=== PATIENT | male | born 1975 | race Caucasian/White ===

== ENCOUNTER 2022-12-28 14:03 | Inpatient (IN) | payer BC, SELFPAY ==
[2022-12-28] VITALS (50 sets, daily range): BP systolic 97–140; BP diastolic 66–109; PULSE 86–101; RESP 14–18; TEMP 36.3–36.8; O2SAT 90–100; BMI 40.1
--- NOTE | 2022-12-28 14:09 | XRR_ITS ---
PROCEDURE INFORMATION: Exam: XR Chest Exam date and time: 12/28/2022 2:22 PM Age: 47 years old Clinical indication: Other: AMS TECHNIQUE: Imaging protocol: Radiologic exam of the chest. Views: 1 view. COMPARISON: No relevant prior studies available. FINDINGS: Lungs: 10 mm calcified granuloma in the right mid lung. There is no consolidation. Pleural spaces: There is no pleural effusion or pneumothorax. Heart/Mediastinum: Cardiomediastinal contours are unremarkable. Bones/joints: Bones are unremarkable. XR/XR chest 1V portable [id number] IMPRESSION: No acute findings.
--- NOTE | 2022-12-28 14:14 | PC.NURSE ---
PATIENT PRESENTED TO ED RESTRAINED DUE TO AGGRESSION AND SPITTING, BITING STAFF. EMS REPORTS THAT RESTRAINTS WERE NEEDED TO CONTROL PATIENT BEHAVIOR. SOFT RESTRAINTS PUT IN PLACE AT TIME OF ASSESSMENT. PATIENT CONTINUES TO TRY AND COME OUT OF RESTRAINTS. PATIENT ON NRB AT 15 L DUE TO KETAMINE AND ATIVAN USE BY EMS. WILL CONTINUE TO MONITOR PATIENT NEED FOR RESTRAINTS. 1:1 SITTER PRESENT AND INSTRUCTED ON PATIENT. PATENT AIRWAY, UNLABORED RESPIRATIONS, AND APPROPRIATE COLOR.
--- NOTE | 2022-12-28 14:16 | W.ED.AMS ---
HPI - Altered Mental Status General: Chief Complaint: Altered Mental Status Stated Complaint: AMS Time Seen by Provider: 12/28/22 14:09 History of Present Illness: Patient presents to ED by EMS for altered mental status after drug use. Patient was found at his home not acting himself and acting crazy. Patient just got out of snf 4 days ago and has been on a IV meth coello since then. Patient has received multiple doses of ketamine and Ativan on route by EMS. Patient is a biter spitter and pincher. Patient is in restraints for his own personal safety and nursing staff safety MD complaint: altered mental status Onset (ago): unknown Severity: severe Consistency of symptoms: Constant Context: drug abuse Treatments prior to arrival: other (Ketamine and Ativan per EMS) Review of Systems General: Reports: ROS unobtainable due to mental status Physical Exam Const: COMMON NORMALS: average body habitus and well nourished EXAM LIMITATIONS: altered mental status HENMT: COMMON NORMALS: normocephalic, atraumatic, external ears normal, Normal external nose present and moist oral mucous membranes HEAD & SCALP: normocephalic and atraumatic NOSE: Normal external nose present EXTERNAL EAR: Yes external ears normal Eye: COMMON NORMALS: Equal, round and reactive pupils present, EOMs intact bilaterally, conjunctivae normal and no scleral icterus CONJUNCTIVA: Yes conjunctivae normal PUPIL: Yes Equal, round and reactive pupils present Neck/C-Spine: COMMON NORMALS: no JVD Chest: COMMONS NORMALS: normal inspection of the chest and normal palpation of entire chest wall Resp: COMMON NORMALS: normal respiratory effort, No retractions, No use of accessory muscles and clear to auscultation bilaterally AUSCULTATION: clear to auscultation bilaterally Cardio: COMMON NORMALS: no JVD, regular rate, regular rhythm, S1 normal heart sound present, S2 normal heart sound present, No gallops present (Cardio), No clicks present (Cardio) and No murmurs present (Cardio) RATE: regular rate RHYTHM: regular rhythm HEART SOUNDS: S1 normal heart sound present and S2 normal heart sound present GI: COMMON NORMALS: Normal to inspection, nondistended, normoactive bowel sounds present, Soft to palpation, non-tender, No hepatosplenomegaly present and no masses PALPATION: Yes Soft to palpation and Yes No hepatosplenomegaly present Neuro: OTHER: Responsive to painful stimuli Course Vital Signs: Vital signs: Vital Signs Temperature 98.3 F 12/28/22 14:04 Pulse Rate 97 12/28/22 16:04 Respiratory Rate 18 12/28/22 16:04 Blood Pressure 133/84 12/28/22 16:04 Pulse Oximetry 100 12/28/22 16:04 Oxygen Delivery Me thod Non-Rebreather 12/28/22 16:04 Oxygen Flow Rate 15 12/28/22 16:04 MDM - Altered Mental Status Medical Decision Making Patient presented by EMS for altered mental status secondary to drug use. Patient is currently being restrained due to patient's safety and personal safety. Patient was highly agitated combative and biting and spitting. Lab work was obtained which showed elevated BUN and creatinine at 31 and 1.7, elevated creatinine kinase of approximately 1400, urine drug screen showed amphetamines and marijuana. Dr. Tarango was consulted and agreed for admission to the ICU for further evaluation and treatment Differential Diagnosis Likely altered mental status; Unlikely alcoholic intoxication, delirium, dementia, hypoglycemia, hyponatremia, subarachnoid hemorrhage or sepsis Medical Records I reviewed the patient's medical records. Lab Data I reviewed the patient's lab results. 12/28/22 14:33 12/28/22 14:33 Radiology Impressions Chest X-Ray 12/28/22 14:09 IMPRESSION: No acute findings. Laboratory Results WBC 10.2 10^3/uL (4.0-10.0) H 12/28/22 14:33 RBC 4.46 10^6/uL (4.1-5.3) 12/28/22 14:33 Hgb 13.8 g/dL (11.7-16.6) 12/28/22 14:33 Hct 40.3 % (42.0-52.0) L 12/28/22 14:33 MCV 90.4 fl (80-94) 12/28/22 14:33 MCH 30.9 pg (28.0-34.0) 12/28/22 14:33 MCHC 34.2 g/dL (30.0-36.0) 12/28/22 14:33 RDW 12.2 % (12.1-15.1) 12/28/22 14:33 Plt Count 268 10^3/cmm (130-400) 12/28/22 14:33 MPV 10.8 fL (7.4-10.4) H 12/28/22 14:33 Neut % (Auto) 73.7 % 12/28/22 14:33 Lymph % (Auto) 13.4 % 12/28/22 14:33 [place] % (Auto) 11.2 % 12/28/22 14:33 Eos % (Auto) 1.0 % 12/28/22 14:33 Baso % (Auto) 0.5 % 12/28/22 14:33 Neut # (Auto) 7.53 10^3/uL (1.8-7.7) 12/28/22 14:33 Lymph # (Auto) 1.4 10^3/uL (0.8-4.8) 12/28/22 14:33 [place] # (Auto) 1.1 10^3/uL (0.2-0.9) H 12/28/22 14:33 Eos # (Auto) 0.1 10^3/uL (0.0-0.8) 12/28/22 14:33 Baso # (Auto) 0.1 10^3/uL (0.0-0.1) 12/28/22 14:33 Nucleated RBC % (auto) 0 % 12/28/22 14:33 Nucleated RBCs # 0.0 /100WBC 12/28/22 14:33 Sodium 138 mmol/L (136-145) 12/28/22 14:33 Potassium 3.6 mmol/L (3.5-5.1) 12/28/22 14:33 Chloride 99 mmol/L (98-107) 12/28/22 14:33 Carbon Dioxide 23 mmol/L (22-29) 12/28/22 14:33 Anion Gap 19.6 (5-19) H 12/28/22 14:33 BUN 31 mg/dL (6-20) H 12/28/22 14:33 Creatinine 1.7 mg/dL (0.7-1.2) H 12/28/22 14:33 GFR Calculation 43.2 mL/min (90-130) L 12/28/22 14:33 Glucose 97 mg/dL (65-115) 12/28/22 14:33 Calculated Osmolality 292 mOsm/kg (285-295) 12/28/22 14:33 Calcium 9.8 mg/dL (8.5-10.5) 12/28/22 14:33 Magnesium 2.2 mg/dL (1.7-2.3) 12/28/22 14:33 Total Bilirubin 1.4 mg/dL (0.15-1.2) H 12/28/22 14:33 AST 57 U/L (0-40) H 12/28/22 14:33 ALT 29 U/L (0-41) 12/28/22 14:33 Alkaline Phosphatase 66 U/L (40-130) 12/28/22 14:33 Creatine Kinase 1431 U/L (39-308) H* 12/28/22 14:33 Total Protein 7.4 g/dL (6.6-8.7) 12/28/22 14: Albumin 4.4 g/dL (3.5-5.2) 12/28/22 14:33 Globulin 3.0 g/dL (1.3-4.6) 12/28/22 14:33 Urine Color Yellow (Yellow) 12/28/22 14:39 Urine Appearance Clear (CLEAR) 12/28/22 14:39 Urine pH 5 (5-7) 12/28/22 14:39 Ur Specific [place] 1.025 (1.005-1.030) 12/28/22 14:39 Urine Protein Neg (Negative) 12/28/22 14:39 Urine Glucose (UA) Norm (Normal) 12/28/22 14:39 Urine Ketones Negative (Negative) 12/28/22 14:39 Urine Blood 3+ (Negative) H 12/28/22 14:39 Urine Nitrate Negative (Negative) 12/28/22 14:39 Urine Bilirubin Neg (Negative) 12/28/22 14:39 Urine Urobilinogen 1 mg/dL (Negative) H 12/28/22 14:39 Ur Leukocyte Esterase Negative (Negative) 12/28/22 14:39 Urine RBC 5-10 /hpf (0-2) H 12/28/22 14:39 Urine WBC 0-4 /hpf (0-5) H 12/28/22 14:39 Ur Squamous Epith Cells None /hpf (0-5) 12/28/22 14:39 Amorphous Sediment 1+ /hpf 12/28/22 14:39 Urine Bacteria Trace /hpf (NONE) 12/28/22 14:39 Hyaline Casts 0-4 /lpf H 12/28/22 14:39 Salicylates 0.5 mg/dL (3-10) L 12/28/22 14:33 Urine Opiates Screen Negative ng/mL (Negative) 12/28/22 14:39 Acetaminophen < 5.0 ug/mL (10-30) L 12/28/22 14:33 Ur Barbiturates Screen Negative ng/mL (Negative) 12/28/22 14:39 Ur Phencyclidine Scrn Negative ng/mL (Negative) 12/28/22 14:39 Ur Amphetamines Screen Positive ng/mL (Negative) H 12/28/22 14:39 U Benzodiazepines Scrn Negative ng/mL (Negative) 12/28/22 14:39 Urine Cocaine Screen Negative ng/mL (Negative) 12/28/22 14:39 U Marijuana (THC) Screen Positive ng/mL (Negative) H 12/28/22 14:39 Ethyl Alcohol 14 mg/dL (0-10) H 12/28/22 14:33 EKG Data EKG 1: I personally reviewed and interpreted this EKG as follows: EKG interpretation date: 12/28/22 EKG interpretation time: 14:34 Prior EKG tracings: not available for review Interpretation: EKG showed ventricular rate 95 bpm, RI interval 158, QRS duration 113, QTc 422, normal sinus rhythm, incomplete right bundle branch block, Discharge Plan Discharge Patient Disposition: Admitted As Inpatient Admit Provider: Raghavendra Tarango Clinical Impression: Amphetamine abuse, Acute kidney insufficiency Altered mental status Qualifiers: Altered mental status type: delirium Qualified Code(s): R41.0 - Disorientation, unspecified Rhabdomyolysis Qualifiers: Rhabdomyolysis type: non-traumatic Qualified Code(s): M62.82 - Rhabdomyolysis Condition: Stable Coding Level of Care Code ED District Sales Representative for [employer]
--- NOTE | 2022-12-28 14:34 | ECG_ITS ---
[facility] Test Date: 2022-12-28 Pat Name: Willem Lauren Department: Room: Gender: Male Clerk To Justice: : 1975 Requested By: Leroy García Order Number: [id number] Burgess MD: Donna Guerrero M.D. Measurements Intervals [place] Rate: 95 P: 64 AL: 158 QRS: 60 QRSD: 113 T: 68 QT: 369 QTc: 466 Interpretive Statements SINUS RHYTHM POSSIBLE LEFT ATRIAL ENLARGEMENT [-0.1mV P-WAVE IN V1/V2] INCOMPLETE RIGHT BUNDLE BRANCH BLOCK [90+ ms QRS DURATION, TERMINAL R IN V1/V2, 40+ ms S IN I/aVL/V4/V5/V6] No previous ECG available for comparison Electronically Signed On 12-28-2022 17:32:22 CDT by Donna Guerrero M.D. [id number]
[2022-12-28 14:42] LABS: Basophils # 0.1 10^3/uL (0.0-0.1); Basophils % 0.5 %; Eosinophils # 0.1 10^3/uL (0.0-0.8); Hematocrit 40.3 % (42.0-52.0); Hemoglobin 13.8 g/dL (11.7-16.6); Lymphocytes # 1.4 10^3/uL (0.8-4.8); Lymphocytes % 13.4 %; Mean Corpuscular HGB Conc 34.2 g/dL (30.0-36.0); Mean Corpuscular Hemoglobin 30.9 pg (28.0-34.0); Mean Corpuscular Volume 90.4 fl (80-94); Mean Platelet Volume 10.8 fL (7.4-10.4); Monocytes # 1.1 10^3/uL (0.2-0.9); Monocytes % 11.2 %; Neutrophils # 7.53 10^3/uL (1.8-7.7); Neutrophils % 73.7 %; Nucleated Red Blood Cells % 0 %; Platelet Count 268 10^3/cmm (130-400); Red Blood Count 4.46 10^6/uL (4.1-5.3); Red Cell Distribution Width 12.2 % (12.1-15.1); White Blood Count 10.2 10^3/uL (4.0-10.0)
[2022-12-28 14:56] LABS: Amphetamines Screen Urine Positive (Negative); Barbiturates Screen Urine Negative (Negative); Benzodiazepines Screen Urine Negative (Negative); Cocaine Screen Urine Negative (Negative); Opiate Screen Urine Negative (Negative); PCP Screen Urine Negative (Negative); THC Screen Urine Positive (Negative)
[2022-12-28 14:57] LABS: Blood Urine 3+ (Negative); Glucose Urine UA Norm (Normal); Ketones Urine Negative (Negative); Nitrate Urine Negative (Negative); Protein Urine Neg (Negative); Specific Gravity, Urine 1.025 (1.005-1.030); Urine Appearance Clear (CLEAR); Urine Color Yellow (Yellow); pH Urine 5 (5-7)
[2022-12-28 14:58] LABS: Add Urine Culture? No; Add Urine Microscopic? YES; Amorphous Sediment Urine 1+ /hpf; Bacteria Urine TRACE /hpf; Bilirubin Urine Neg (Negative); Hyaline Casts Urine 0-4 /lpf; Leukocyte Esterase Urine Negative (Negative); Urobilinogen Urine 1 mg/dL (Negative); WBC Urine 0-4 /hpf (0-5)
[2022-12-28 15:05] LABS: Alanine Aminotransferase 29 U/L (0-41); Albumin Level 4.4 g/dL (3.5-5.2); Alcohol Level 14 mg/dL (0-10); Alkaline Phosphatase 66 U/L (40-130); Anion Gap 19.6 (5-19); Aspartate Amino Transferase 57 U/L (0-40); Blood Urea Nitrogen 31 mg/dL (6-20); Calcium 9.8 mg/dL (8.5-10.5); Carbon Dioxide 23 mmol/L (22-29); Chloride 99 mmol/L (98-107); Creatinine Clr Calc Pharmacy 71.1064; Glomerular Filtration Rate 43.2 mL/min (90-130); Glucose 97 mg/dL (65-115); Magnesium 2.2 mg/dL (1.7-2.3); Osmolality Calculated 292 mOsm/kg (285-295); Potassium 3.6 mmol/L (3.5-5.1); Salicylate 0.5 mg/dL (3-10); Sodium 138 mmol/L (136-145); Total Bilirubin 1.4 mg/dL (0.15-1.2); Total Protein 7.4 g/dL (6.6-8.7)
[2022-12-28 15:11] LABS: Acetaminophen < 5.0 ug/mL (10-30); Creatine Phosphokinase 1431 U/L (39-308)
[2022-12-28] MEDS: sodium chloride 0.9% 1,000 ML 999 ML IV (15:39)
--- NOTE | 2022-12-28 15:41 | PC.NURSE ---
PATIENT RIGHT FOOT REMOVED FROM SOFT RESTRAINTS. PATIENT CONTINUES TO REST. ALL OTHER RESTRAINTS CHECKED, NO PROBLEMS NOTED. NRB REMOVED FROM PATIENT TO CHECK ROOM AIR OXYGEN SATURATION. PATIENT O2 SATS DROPPED TO 94% AFTER 30 SECONDS. PATIENT PLACED BACK ON NRB AT 15 L.
--- NOTE | 2022-12-28 16:05 | PC.NURSE ---
PATIENT LEFT ARM REMOVED FROM RESTRAINTS.
--- NOTE | 2022-12-28 16:51 | PC.NURSE ---
REceived patient from ER staff at 1629. HR: 91, SPO2: 100, BP: 120/66, Temp: 97.3, RR: 18. Patient is asleep with snoring respirations. Patient is asleep.
--- NOTE | 2022-12-28 17:12 | PM.HP ---
Providers/Chief Complaint Admitting Physician: Raghavendra Tarango MD Chief Complaint: AMS History of Present Illness Willem Lauren is a 47 year old male with an unknown past medical history presents to the emergency department via EMS with altered mental status. Upon my evaluation, he is severely encephalopathic and unable to provide any history. No family or friends available bedside to provide collateral information. History obtained from ED provider report. Patient reportedly got out of [facility] about 4 days ago for methamphetamine related issues. He has reportedly been taking methamphetamines since release. He was reportedly altered at his family's residence for which they called EMS. He apparently got benzodiazepines and ketamine. He was reportedly combative with staff. He is now extremely lethargic in the ICU. No reports of self harm, harmful thoughts, suicidal ideation or homicidal ideation. Attempted, but unable to obtain a complete medical history, surgical history, family history, and social history due to severe encephalopathy. Review of Systems Narrative: Attempted, but unable to obtain a complete review of systems due to severe encephalopathy. Medications/Allergies Home Medications Medication Instructions Recorded Confirmed Last Taken Type Unable to Assess 12/28/22 12/28/22 Unknown History Allergies Allergy/AdvReac Type Severity Reaction Status Date / Time Unable to Assess Allergy Unverified 12/28/22 14:09 Vitals/I&O/Wt Last Vital Signs Temp 98.3 F 12/28/22 14:04 Pulse 97 12/28/22 16:30 Resp 18 12/28/22 16:30 BP 133/84 12/28/22 16:30 Pulse Ox 100 12/28/22 16:30 O2 Del Method Non-Rebreather 12/28/22 16:04 O2 Flow Rate 15 12/28/22 16:04 12/28/22 12/28/22 12/28/22 06:59 14:59 22:59 Intake Total 865.8 / 865.8 Balance 865.8 / 865.8 Weight last 48 hrs Weight 127.006 kg Physical Exam Narrative: General: Patient is severely encephalopathic Head: Normocephalic. Atraumatic. EOM intact. Neck: No JVD. Cardiovascular: Decreased peripheral perfusion. Dry mucous membranes. Lungs: Tachypneic. Increased work of breathing. Audible upper airway noises noted. On supplemental oxygen support. Skin: No jaundice. No rashes. Abdomen: Not distended. Extremities: No cyanosis or clubbing. Musculoskeletal: No overtly deformed joints. Neurological: Moves all 4 extremities. No myoclonus. Severe encephalopathy. Data 12/28/22 14:33 12/28/22 14:33 A&P Assessment and plan (1) Altered mental status: Secondary to acute toxic encephalopathy from methamphetamine abuse Further history and medical history cannot be obtained due to his mental status Patient requiring restraints for severe agitation and combativeness Status post multiple sedating medications, now severely encephalopathic Start aggressive IV fluids No reports of suicidal or homicidal ideation No indication for 96 hour hold Haldol and Ativan if needed Qualifiers: Altered mental status type: delirium Qualified Code(s): R41.0 - Disorientation, unspecified (2) Amphetamine abuse: Would benefit from cessation (3) Renal insufficiency: Creatinine elevated, unknown baseline IV fluids as above Strict I's and O's Renally dose medications as indicated Plan DVT prophylaxis: Low risk CODE STATUS: Assume full code Attestations Medical Necessity Statement*: Patient presents with acute toxic encephalopathy from methamphetamine abuse for which he received multiple sedating medications acute on ketamine requiring restraints and admission to the intensive care unit with expected hospitalization to cross 2 midnights. Critical Care Time: The high probability of a clinically significant, sudden or life threatening deterioration of the patient's neurological, renal, metabolic system(s) required my full and direct attention, intervention and personal management. The critical care time is as shown. This time is in addition to time spent performing any reported procedures but includes the following: [x] Data and vital sign review and interpretation [x] Patient assessment, examination and intervention [x] Documentation [x] Medication orders and management Critical Care Time (min): 44 Coding Level of Care Code Acute Code for Chg Fwd Diagnoses Altered mental status R41.0 Altered mental status type: delirium Amphetamine abuse F15.10 Renal insufficiency N28.9
[2022-12-28] MEDS: sodium chloride 0.9% 1,000 ML 200 ML IV ×2 (17:42→22:46)
--- NOTE | 2022-12-28 18:00 | PC.NURSE ---
Shift Summary: uneventful shift while in ICU. Patient was given ketamine in the ER due to combativeness and attempting to harm those around him. Came to ICU sleeping and vitals within normal limits, has only een in ICU for about 2 hours at this time and continues to sleep.
[2022-12-28] MEDS: LORazepam 2 mg/mL INJ 1 mL IVP ×2 (20:01→23:45)
[2022-12-29] VITALS (10 sets, daily range): BP systolic 103–135; BP diastolic 73–87; PULSE 76–91; RESP 12–16; TEMP 36.7–36.8; O2SAT 95–99
[2022-12-29] MEDS: sodium chloride 0.9% 1,000 ML 200 ML IV ×2 (03:36→08:04)
[2022-12-29 04:51] LABS: Alanine Aminotransferase 22 U/L (0-41); Albumin Level 3.6 g/dL (3.5-5.2); Alkaline Phosphatase 56 U/L (40-130); Anion Gap 16.7 (5-19); Aspartate Amino Transferase 38 U/L (0-40); Blood Urea Nitrogen 23 mg/dL (6-20); Calcium 8.4 mg/dL (8.5-10.5); Carbon Dioxide 19 mmol/L (22-29); Chloride 107 mmol/L (98-107); Globulin 2.5 g/dL (1.3-4.6); Glomerular Filtration Rate 79.8 mL/min (90-130); Glucose 73 mg/dL (65-115); Osmolality Calculated 290 mOsm/kg (285-295); Potassium 3.7 mmol/L (3.5-5.1); Sodium 139 mmol/L (136-145); Total Bilirubin 1.2 mg/dL (0.15-1.2); Total Protein 6.1 g/dL (6.6-8.7)
[2022-12-29 05:06] LABS: Creatine Phosphokinase 625 U/L (39-308)
[2022-12-29 05:37] LABS: CKMB 7.1 ng/mL (0-10.4); CKMB Relative Index 1.1 % (0.0-5.3)
[2022-12-29] MEDS: LORazepam 2 mg/mL INJ 1 mL IVP (05:43)
--- NOTE | 2022-12-29 17:30 | P.DS_ITS ---
Discharge Providers Date of Admission: 12/28/22 15:42 Date of Discharge: December 29, 2022 Attending Provider at Admission: Raghavendra Tarango MD Attending Provider at Discharge: Raghavendra Tarango MD Diagnoses at Discharge Discharge Diagnosis (1) Altered mental status: Status: Resolved Qualifiers: Altered mental status type: delirium Qualified Code(s): R41.0 - Disorientation, unspecified (2) Amphetamine abuse: Status: Acute (3) Renal insufficiency: Status: Resolved Reason for Visit Reason for Visit: AMS Hospital Course Hospital Course Willem Lauren is a 47 year old male with an unknown past medical history presents to the emergency department via EMS with altered mental status, found to have acute toxic encephalopathy secondary to methamphetamine abuse. He was initially combative and required restraints. He was treated with IV fluids and supportive care. Patient denied any thoughts of self harm, SI, or HI. Mentation improved. He was counseled on drug cessation. Patient discharged in stable condition. Physical Exam Narrative: General: Patient is awake. Lying in bed. Head:? Normocephalic. Atraumatic. EOM intact. Neck: No JVD. Cardiovascular: Normal S1 and S2. No murmur. Lungs: CTAB. No wheeze. No crackles. Skin: No jaundice. No rashes. Abdomen: Not distended. Extremities: No cyanosis or clubbing. Musculoskeletal: No overtly deformed joints. Neurological: Moves all 4 extremities. No myoclonus.? Discharge Data Studies Completed and Pending Completed Studies During Hospitalization Category Date Time Status XR chest 1V portable [id number] Stat Exams 12/28/22 14:09 Completed Radiology Impressions Chest X-Ray 12/28/22 14:09 IMPRESSION: No acute findings. Laboratory Results WBC 10.2 10^3/uL (4.0-10.0) H 12/28/22 14:33 RBC 4.46 10^6/uL (4.1-5.3) 12/28/22 14:33 Hgb 13.8 g/dL (11.7-16.6) 12/28/22 14:33 Hct 40.3 % (42.0-52.0) L 12/28/22 14:33 MCV 90.4 fl (80-94) 12/28/22 14:33 MCH 30.9 pg (28.0-34.0) 12/28/22 14:33 MCHC 34.2 g/dL (30.0-36.0) 12/28/22 14:33 RDW 12.2 % (12.1-15.1) 12/28/22 14:33 Plt Count 268 10^3/cmm (130-400) 12/28/22 14:33 MPV 10.8 fL (7.4-10.4) H 12/28/22 14:33 Neut % (Auto) 73.7 % 12/28/22 14:33 Lymph % (Auto) 13.4 % 12/28/22 14:33 [place] % (Auto) 11.2 % 12/28/22 14: Eos % (Auto) 1.0 % 12/28/22 14:33 Baso % (Auto) 0.5 % 12/28/22 14: Neut # (Auto) 7.53 10^3/uL (1.8-7.7) 12/28/22 14:33 Lymph # (Auto) 1.4 10^3/uL (0.8-4.8) 12/28/22 14:33 [place] # (Auto) 1.1 10^3/uL (0.2-0.9) H 12/28/22 14:33 Eos # (Auto) 0.1 10^3/uL (0.0-0.8) 12/28/22 14:33 Baso # (Auto) 0.1 10^3/uL (0.0-0.1) 12/28/22 14: Nucleated RBC % (auto) 0 % 12/28/22 14:33 Nucleated RBCs # 0.0 /100WBC 12/28/22 14:33 Sodium 139 mmol/L (136-145) 12/29/22 04:05 Potassium 3.7 mmol/L (3.5-5.1) 12/29/22 04:05 Chloride 107 mmol/L (98-107) 12/29/22 04:05 Carbon Dioxide 19 mmol/L (22-29) L 12/29/22 04:05 Anion Gap 16.7 (5-19) 12/29/22 04:05 BUN 23 mg/dL (6-20) H 12/29/22 04:05 Creatinine 1.0 mg/dL (0.7-1.2) 12/29/22 04:05 GFR Calculation 79.8 mL/min (90-130) L 12/29/22 04:05 Glucose 73 mg/dL (65-115) 12/29/22 04:05 Calculated Osmolality 290 mOsm/kg (285-295) 12/29/22 04:05 Calcium 8.4 mg/dL (8.5-10.5) L 12/29/22 04:05 Magnesium 2.2 mg/dL (1.7-2.3) 12/28/22 14:33 Total Bilirubin 1.2 mg/dL (0.15-1.2) 12/29/22 04:05 AST 38 U/L (0-40) 12/29/22 04:05 ALT 22 U/L (0-41) 12/29/22 04:05 Alkaline Phosphatase 56 U/L (40-130) 12/29/22 04:05 Creatine Kinase 625 U/L (39-308) H* 12/29/22 04:05 CK-MB (CK-2) 7.1 ng/mL (0-10.4) 12/29/22 04:05 CK-MB (CK-2) Rel Index 1.1 % (0.0-5.3) 12/29/22 04:05 Total Protein 6.1 g/dL (6.6-8.7) L 12/29/22 04:05 Albumin 3.6 g/dL (3.5-5.2) 12/29/22 04:05 Globulin 2.5 g/dL (1.3-4.6) 12/29/22 04:05 Urine Color Yellow (Yellow) 12/28/22 14:39 Urine Appearance Clear (CLEAR) 12/28/22 14:39 Urine pH 5 (5-7) 12/28/22 14:39 Ur Specific [place] 1.025 (1.005-1.030) 12/28/22 14:39 Urine Protein Neg (Negative) 12/28/22 14:39 Urine Glucose (UA) Norm (Normal) 12/28/22 14:39 Urine Ketones Negative (Negative) 12/28/22 14:39 Urine Blood 3+ (Negative) H 12/28/22 14:39 Urine Nitrate Negative (Negative) 12/28/22 14:39 Urine Bilirubin Neg (Negative) 12/28/22 14:39 Urine Urobilinogen 1 mg/dL (Negative) H 12/28/22 14:39 Ur Leukocyte Esterase Negative (Negative) 12/28/22 14:39 Urine RBC 5-10 /hpf (0-2) H 12/28/22 14:39 Urine WBC 0-4 /hpf (0-5) H 12/28/22 14:39 Ur Squamous Epith Cells None /hpf (0-5) 12/28/22 14:39 Amorphous Sediment 1+ /hpf 12/28/22 14:39 Urine Bacteria Trace /hpf (NONE) 12/28/22 14:39 Hyaline Casts 0-4 /lpf H 12/28/22 14:39 Salicylates 0.5 mg/dL (3-10) L 12/28/22 14:33 Urine Opiates Screen Negative ng/mL (Negative) 12/28/22 14:39 Acetaminophen < 5.0 ug/mL (10-30) L 12/28/22 14:33 Ur Barbiturates Screen Negative ng/mL (Negative) 12/28/22 14:39 Ur Phencyclidine Scrn Negative ng/mL (Negative) 12/28/22 14:39 Ur Amphetamines Screen Positive ng/mL (Negative) H 12/28/22 14:39 U Benzodiazepines Scrn Negative ng/mL (Negative) 12/28/22 14:39 Urine Cocaine Screen Negative ng/mL (Negative) 12/28/22 14:39 U Marijuana (THC) Screen Positive ng/mL (Negative) H 12/28/22 14:39 Ethyl Alcohol 14 mg/dL (0-10) H 12/28/22 14:33 Vitals Last Vital Signs Temp 98.0 F 12/29/22 04:00 Pulse 78 12/29/22 12:00 Resp 16 12/29/22 04:00 BP 135/87 12/29/22 14:00 Pulse Ox 97 12/29/22 12:00 O2 Del Method Room Air 12/29/22 04:00 O2 Flow Rate 15 12/28/22 16:04 Discharge Plan Discharge Patient Disposition: Home Condition: Stable Prescriptions: No Action Unable to Assess Discharge Orders: Discharge Order (Routine); Ordered 12/29/22 Ordered By: Raghavendra Tarango Discharge Diet: Advance as tolerated and Usual diet Discharge Activity: Resume usual activity and Increase activity as tolerated Patient Instructions: Methamphetamine Abuse, Opioid Safety Activity Restrictions/Additional Instructions: 1. Discontinue methamphetamine use. 2. Follow up with PCP with one week. 3. Increase activity as tolerated. 4. Increase oral intake. Discharge Attestations Time Spent in Discharge Care*: greater than 30 min Quality Metrics Clinical Quality Measures [ No reported AMI, CVA or VTE this stay] Coding Level of Care Code Acute Code for g Fwd Diagnoses Altered mental status R41.0 Altered mental status type: delirium Amphetamine abuse F15.10 Renal insufficiency N28.9
--- NOTE | 2022-12-29 18:44 | PC.NURSE ---
Patient signed D/C form, d/c instructions educated to patient, no questions or concerns expressed
--- NOTE | 2022-12-29 19:10 | PC.NURSE ---
Dr. Cordoba consulted with patient and offered help for substance abuse in inpatient psych at [facility]. Patient refusing help at present time. Dr. Cordoba instructed patient and mother that if there are any needs to please return to the ER and he will admit patient to the psych unit for help. Patient walked out with mother, refused wheelchair for discharge.
== END 2022-12-29 19:05 | disposition home or self-care (01) | DRG 917 ==
LOC: ER 15:42 → ICU 15:52
PROVIDERS: Admitting Provider Internal Medicine; Emergency Provider Emergency Medicine; Visit Provider Internal Medicine
DX: T43.621A Poisoning by amphetamines, accidental (unintentional), initial encounter (principal); G92.8 Other toxic encephalopathy; N28.9 Disorder of kidney and ureter, unspecified
CPT/HCPCS: 36415; 71045; 80053; 80306; 80307; 81001; 82550; 82553; 83735; 85025; 93005; 96376; 99285; 99291; J2060; J7030

== ENCOUNTER 2023-03-24 23:22 | Inpatient (IN) | payer BC, SELFPAY ==
[2023-03-24 23:25] VITALS: BMI 40.1
[2023-03-24 23:40] VITALS: BP 160/95; PULSE 109; RESP 16; TEMP 36.3; O2SAT 92
--- NOTE | 2023-03-24 23:40 | ECG_ITS ---
[facility] Test Date: 2023-03-24 Pat Name: Willem Lauren Department: Room: Gender: Male Interventional Nurse: : 1975 Requested By: Joey Campos Order Number: [id number] Jenifer MD: Bell Valdes M.D. Measurements Intervals [place] Rate: 111 P: 37 VT: 146 QRS: 15 QRSD: 105 T: 62 QT: 311 QTc: 423 Interpretive Statements SINUS TACHYCARDIA POSSIBLE LEFT ATRIAL ENLARGEMENT [-0.1mV P-WAVE IN V1/V2] ABNORMAL RHYTHM ECG Compared to ECG 12/28/2022 14:34:14 Sinus rhythm no longer present Incomplete right bundle-branch block no longer present Electronically Signed On 03-26-2023 19:55:37 CDT by Bell Valdes M.D. [id number]
[2023-03-24] MEDS: LORazepam 2 mg/mL INJ 1 mL IM (23:48)
[2023-03-25] VITALS (34 sets, daily range): BP systolic 109–146; BP diastolic 59–89; PULSE 63–102; RESP 16–36; TEMP 36.3–37.1; O2SAT 90–100
--- NOTE | 2023-03-25 00:14 | PC.NURSE ---
RN to room as pt is attempting to get out of bed with PSA. Pt is yelling, Jose Xin! over and over. Pt is leaned over, spitting into the floor frequently. Pt is yelling incomprehensible words over and over. Pt agrees to sit still for haldol and ativan injection. Pt then lays back, asking Please don't hurt me. Pt laid down and stayed in bed. Pt is currently calmer at this time laying down.
[2023-03-25] MEDS: LORazepam 2 mg/mL INJ 1 mL IM (00:15)
[2023-03-25] MEDS: haloperidol inj 5 mg/mL INJ 1 mL IM (00:15)
--- NOTE | 2023-03-25 00:40 | PC.NURSE ---
RN into room to assess pt. Pt is sitting up at edge of bed again. Pt is now calmer and cooperative with instructions. Pt states, I will totally let you draw my blood if you get some water right in this hand. Pt also agreed to provide urine sample.
--- NOTE | 2023-03-25 00:55 | ED.C_ITS ---
HPI - Psych General: Chief Complaint: Psychiatric Symptoms Stated Complaint: meth Time Seen by Provider: 03/24/23 23:31 Source: EMS Mode of arrival: EMS Limitations: physical limitation History of Present Illness: 39-year-old male here with EMS complaints of methamphetamine abuse and acute psychosis. EMS [place] was combative patient was hallucinating with EMS and combative they had to give him 400 mg of ketamine in route. Patient is now awake he is acutely psychotic he thinks God was in the room I was in there he keeps shouting his name and seeing people in the room with him. He does admit to methamphetamine abuse tonight. Review of Systems General: Reports: ROS unobtainable due to medical condition Physical Exam Const: COMMON NORMALS: patient oriented x3 HENMT: COMMON NORMALS: normocephalic and atraumatic HEAD & SCALP: normocephalic and atraumatic Eye: COMMON NORMALS: Equal, round and reactive pupils present and EOMs intact bilaterally PUPIL: Yes Equal, round and reactive pupils present Neck/C-Spine: COMMON NORMALS: full ROM and supple Chest: COMMONS NORMALS: normal inspection of the chest and normal palpation of entire chest wall Resp: COMMON NORMALS: normal respiratory effort, No retractions, No use of acc essory muscles and clear to auscultation bilaterally AUSCULTATION: clear to auscultation bilaterally Cardio: COMMON NORMALS: regular rate, regular rhythm and No murmurs present (Cardio) RATE: regular rate RHYTHM: regular rhythm GI: COMMON NORMALS: Normal to inspection, nondistended, normoactive bowel sounds present, Soft to palpation, non-tender and no masses PALPATION: Yes Soft to palpation Extremity: COMMON NORMALS: normal to inspection and full ROM Neuro: COMMON NORMALS: patient oriented x3, moves all extremities and no focal motor deficits Psych: ATTITUDE: Yes paranoid, Yes bizarre and Yes agitated ACTIVITY/MOTOR BEHAVIOR: Yes psychomotor agitation THOUGHT CONTENT: Yes Hallucination(s) present Skin: COMMON NORMALS: no rashes or lesions noted and no wounds GENERAL SKIN EXAM: no rashes or lesions noted Course Vital Signs: Vital signs: Vital Signs Temperature 97.4 F L 03/25/23 04:14 Pulse Rate 98 03/25/23 04:14 Respiratory Rate 16 03/25/23 04:14 Blood Pressure 146/72 03/25/23 04:14 Pulse Oximetry 90 03/25/23 04:14 MDM - Psych Medical Decision Making Patient presents here with acute psychosis likely from methamphetamine abuse he is also has acute kidney injury along with rhabdomyolysis likely from dehydration and his meth abuse. Spoke to the hospitalist patient started on IV fluids will admit to the ICU at this time. Medical Records I reviewed the patient's medical records. Lab Data I reviewed the patient's lab results. 03/25/23 01:10 03/25/23 01:10 Laboratory Results WBC 18.4 10^3/uL (4.0-10.0) H 03/25/23 01:10 RBC 5.95 10^6/uL (4.1-5.3) H 03/25/23 01:10 Hgb 18.9 g/dL (11.7-16.6) H 03/25/23 01:10 Hct 55.6 % (42.0-52.0) H 03/25/23 01:10 MCV 93.4 fl (80-94) 03/25/23 01:10 MCH 31.8 pg (28.0-34.0) 03/25/23 01:10 MCHC 34.0 g/dL (30.0-36.0) 03/25/23 01:10 RDW 12.4 % (12.1-15.1) 03/25/23 01:10 Plt Count 312 10^3/cmm (130-400) 03/25/23 01:10 MPV 10.9 fL (7.4-10.4) H 03/25/23 01:10 Neut % (Auto) 85.3 % 03/25/23 01:10 Lymph % (Auto) 7.0 % 03/25/23 01:10 [place] % (Auto) 7.0 % 03/25/23 01:10 Eos % (Auto) 0.0 % 03/25/23 01:10 Baso % (Auto) 0.2 % 03/25/23 01:10 Neut # (Auto) 15.69 10^3/uL (1.8-7.7) H 03/25/23 01:10 Lymph # (Auto) 1.3 10^3/uL (0.8-4.8) 03/25/23 01:10 [place] # (Auto) 1.3 10^3/uL (0.2-0.9) H 03/25/23 01:10 Eos # (Auto) 0.0 10^3/uL (0.0-0.8) 03/25/23 01:10 Baso # (Auto) 0.0 10^3/uL (0.0-0.1) 03/25/23 01:10 Nucleated RBC % (auto) 0 % 03/25/23 01:10 Nucleated RBCs # 0.0 /100WBC 03/25/23 01:10 Sodium 139 mmol/L (136-145) 03/25/23 01:10 Potassium 4.5 mmol/L (3.5-5.1) 03/25/23 01:10 Chloride 93 mmol/L (98-107) L 03/25/23 01:10 Carbon Dioxide 18 mmol/L (22-29) L 03/25/23 01:10 Anion Gap 32.5 (5-19) H 03/25/23 01:10 BUN 50 mg/dL (6-20) H 03/25/23 01:10 Creatinine 6.6 mg/dL (0.7-1.2) H* 03/25/23 01:10 GFR Calculation 9.0 mL/min (90-130) L 03/25/23 01:10 Glucose 129 mg/dL (65-115) H 03/25/23 01:10 Calculated Osmolality 303 mOsm/kg (285-295) H 03/25/23 01:10 Calcium 11.4 mg/dL (8.5-10.5) H 03/25/23 01:10 Total Bilirubin 1.2 mg/dL (0.15-1.2) 03/25/23 01:10 AST 68 U/L (0-40) H 03/25/23 01:10 ALT 34 U/L (0-41) 03/25/23 01:10 Alkaline Phosphatase 92 U/L (40-130) 03/25/23 01:10 Creatine Kinase 2762 U/L (39-308) H* 03/25/23 01:10 Total Protein 10.6 g/dL (6.6-8.7) H 03/25/23 01:10 Albumin 7.5 g/dL (3.5-5.2) H 03/25/23 01:10 Globulin 3.1 g/dL (1.3-4.6) 03/25/23 01:10 Urine Color Yellow (Yellow) 03/25/23 03:43 Urine Appearance Turbid (CLEAR) A 03/25/23 03:43 Urine pH 5 (5-7) 03/25/23 03:43 Ur Specific [place] 1.025 (1.005-1.030) 03/25/23 03:43 Urine Protein 2+ (Negative) H 03/25/23 03:43 Urine Glucose (UA) Norm (Normal) 03/25/23 03:43 Urine Ketones 1+ (Negative) H 03/25/23 03:43 Urine Blood 3+ (Negative) H 03/25/23 03:43 Urine Nitrate Negative (Negative) 03/25/23 03:43 Urine Bilirubin 1+ (Negative) H 03/25/23 03:43 Urine Urobilinogen 1 mg/dL (Negative) H 03/25/23 03:43 Ur Leukocyte Esterase Trace (Negative) H 03/25/23 03:43 Urine RBC 5-10 /hpf (0-2) H 03/25/23 03:43 Urine WBC 10-15 /hpf (0-5) H 03/25/23 03:43 Ur Squamous Epith Cells 5-10 /hpf (0-5) H 03/25/23 03:43 Amorphous Sediment 3+ /hpf 03/25/23 03:43 Urine Bacteria 1+ /hpf (NONE) H 03/25/23 03:43 Hyaline Casts 0-4 /lpf H 03/25/23 03:43 Salicylates < 0.3 mg/dL (3-10) L 03/25/23 01:10 Urine Opiates Screen Negative ng/mL (Negative) 03/25/23 03:43 Acetaminophen < 5.0 ug/mL (10-30) L 03/25/23 01:10 Ur Barbiturates Screen Negative ng/mL (Negative) 03/25/23 03:43 Ur Phencyclidine Scrn Negative ng/mL (Negative) 03/25/23 03:43 Ur Amphetamines Screen Positive ng/mL (Negative) H 03/25/23 03:43 U Benzodiazepines Scrn Negative ng/mL (Negative) 03/25/23 03:43 Urine Cocaine Screen Negative ng/mL (Negative) 03/25/23 03:43 U Marijuana (THC) Screen Negative ng/mL (Negative) 03/25/23 03:43 Ethyl Alcohol < 10 mg/dL (0-10) 03/25/23 01:10 Critical Care Time Critical Care Time: Critical Care Time: Yes Total Critical Care Time: 40 Attestation: The high probability of a clinically significant, sudden or life threatening deterioration of the patient's renal system(s) required my full and direct attention, intervention and personal management. The critical care time is as shown. 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
--- NOTE | 2023-03-25 01:12 | PC.NURSE ---
Pt served with copy of 96 Hour Hold by this nurse and security. No questions at this time.
--- NOTE | 2023-03-25 01:15 | PC.NURSE ---
Pt is currently asleep, snoring at this time. Blood draw completed during pt sleeping. Pt deemed to be danger to self and others per earlier behavior so urine was not attempted at this time. MD aware and okayed.
[2023-03-25 01:29] LABS: Basophils % 0.2 %; Hematocrit 55.6 % (42.0-52.0); Hemoglobin 18.9 g/dL (11.7-16.6); Lymphocytes # 1.3 10^3/uL (0.8-4.8); Mean Corpuscular Hemoglobin 31.8 pg (28.0-34.0); Mean Corpuscular Volume 93.4 fl (80-94); Mean Platelet Volume 10.9 fL (7.4-10.4); Monocytes # 1.3 10^3/uL (0.2-0.9); Neutrophils # 15.69 10^3/uL (1.8-7.7); Neutrophils % 85.3 %; Nucleated Red Blood Cells % 0 %; Platelet Count 312 10^3/cmm (130-400); Red Blood Count 5.95 10^6/uL (4.1-5.3); Red Cell Distribution Width 12.4 % (12.1-15.1); White Blood Count 18.4 10^3/uL (4.0-10.0)
[2023-03-25 01:50] LABS: Alanine Aminotransferase 34 U/L (0-41); Alkaline Phosphatase 92 U/L (40-130); Aspartate Amino Transferase 68 U/L (0-40); Blood Urea Nitrogen 50 mg/dL (6-20); Calcium 11.4 mg/dL (8.5-10.5); Carbon Dioxide 18 mmol/L (22-29); Chloride 93 mmol/L (98-107); Glucose 129 mg/dL (65-115); Osmolality Calculated 303 mOsm/kg (285-295); Sodium 139 mmol/L (136-145); Total Bilirubin 1.2 mg/dL (0.15-1.2); Total Protein 10.6 g/dL (6.6-8.7)
[2023-03-25 02:05] LABS: Albumin Level 7.5 g/dL (3.5-5.2); Globulin 3.1 g/dL (1.3-4.6)
[2023-03-25 02:06] LABS: Acetaminophen < 5.0 ug/mL (10-30); Alcohol Level < 10 mg/dL (0-10); Anion Gap 32.5 (5-19); Potassium 4.5 mmol/L (3.5-5.1); Salicylate < 0.3 mg/dL (3-10)
[2023-03-25 02:07] LABS: Creatine Phosphokinase 2762 U/L (39-308)
--- NOTE | 2023-03-25 02:11 | ECG_ITS ---
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 Measurements Intervals [place] Rate: 111 P: 61 ME: 148 QRS: 29 QRSD: 103 T: 69 QT: 317 QTc: 432 Interpretive Statements SINUS TACHYCARDIA WITH FREQUENT VENTRICULAR PREMATURE COMPLEXES LEFT ATRIAL ENLARGEMENT [-0.15mV P-WAVE IN V1/V2] Compared to ECG 03/24/2023 23:40:32 Ventricular premature complex(es) now present Electronically Signed On 03-26-2023 19:55:53 CDT by Bell Valdes M.D. [id number]
[2023-03-25] MEDS: sodium chloride 0.9% 1,000 ML 999 ML IV ×4 (02:37→04:34)
--- NOTE | 2023-03-25 03:12 | PC.NURSE ---
Straight cath attempted for urine sample at 0245. No urine return at this time. notified.
[2023-03-25 04:00] LABS: Amphetamines Screen Urine Positive (Negative); Barbiturates Screen Urine Negative (Negative); Benzodiazepines Screen Urine Negative (Negative); Cocaine Screen Urine Negative (Negative); Opiate Screen Urine Negative (Negative); PCP Screen Urine Negative (Negative); THC Screen Urine Negative (Negative)
[2023-03-25 04:04] LABS: Add Urine Microscopic? YES; Bilirubin Urine 1+ (Negative); Blood Urine 3+ (Negative); Glucose Urine UA Norm (Normal); Ketones Urine 1+ (Negative); Leukocyte Esterase Urine Trace (Negative); Nitrate Urine Negative (Negative); Protein Urine 2+ (Negative); Specific Gravity, Urine 1.025 (1.005-1.030); Urine Appearance Turbid (CLEAR); Urine Color Yellow (Yellow); Urobilinogen Urine 1 mg/dL (Negative); pH Urine 5 (5-7)
[2023-03-25 04:05] LABS: Amorphous Sediment Urine 3+ /hpf; Bacteria Urine 1+ /hpf; Hyaline Casts Urine 0-4 /lpf
[2023-03-25 04:06] LABS: Add Urine Culture? Yes
[2023-03-25 05:18] LABS: Blood Urea Nitrogen 52 mg/dL (6-20); Calcium 8.2 mg/dL (8.5-10.5); Carbon Dioxide 17 mmol/L (22-29); Chloride 105 mmol/L (98-107); Glomerular Filtration Rate 9.9 mL/min (90-130); Glucose 129 mg/dL (65-115); Osmolality Calculated 304 mOsm/kg (285-295); Sodium 139 mmol/L (136-145)
[2023-03-25] MEDS: sodium chloride 0.9% 1,000 ML 150 ML IV (05:20)
--- NOTE | 2023-03-25 05:33 | P.HP_ITS ---
Providers/Chief Complaint Admitting Physician: Brooke Cazares MD Chief Complaint: meth History of Present Illness Willem Lauren is a 47 year old male who presented to the emergency room via EMS for acute psychosis. I am not able to get any information from him currently as he is sedated after medications administered. From [place] had been doing [place] and was hallucinating. Police were called and EMS was also called. It took several hours to get him as he ran off. He exerted quite a bit today. He received 400 mg of ketamine by EMS and was still very combative and hallucinating upon arrival to the emergency room. In the ER he received a total of 4 mg of Ativan and 5 mg of Haldol. He is currently maintaining airway and vital signs but not waking up enough to interact. Work-up was done showing BUN and creatinine 52/6.1. Potassium 4.0. Initial CK was 2762. White count was 18,000. He received IV fluids and is being admitted for further care to the ICU. Psychiatry has been consulted given the degree of psychosis that he was experiencing. No history is available as patient's only other prior admission here was also in the setting of acute methamphetamine intoxication. No external medication records are available. I am not able to get any information from him at this time. Review of Systems General: Reports: ROS unobtainable due to medical condition and ROS unobtainable due to mental status Medications/Allergies Home Medications Medication Instructions Recorded Confirmed Last Taken Type Unable to Assess 12/28/22 12/28/22 Unknown History Allergies Allergy/AdvReac Type Severity Reaction Status Date / Time Unable to Assess Allergy Unverified 12/28/22 14:09 PFSH Acute PFSH: Medical History (Updated 03/25/23 @ 06:03 by Brooke Cazares MD) Medical history unknown Surgical History (Updated 03/25/23 @ 06:03 by Brooke Cazares MD) Surgical history unknown Other PFSH information: PFSH not updated/unobtainable from patient: due to medical condition and due to mental status Vitals/I&O/Wt Last Vital Signs Temp 97.4 F L 03/25/23 04:14 Pulse 86 03/25/23 05:15 Resp 23 H 03/25/23 05:15 BP 123/77 03/25/23 05:15 Pulse Ox 97 03/25/23 05:15 O2 Del Method Room Air 03/25/23 04:16 03/24/23 03/24/23 03/25/23 14:59 22:59 06:59 Intake Total 999 / 999 Balance 999 / 999 Weight last 48 hrs Weight 127.006 kg Physical Exam Narrative: Patient is lethargic but maintaining airway. Pupils are equal bilaterally. Sclera are injected. Oropharynx with dry mucous membranes, fair dentition. Neck is supple. Lungs are clear to auscultation bilaterally. Cardiovascular exam reveals a regular rate and rhythm. Abdomen is soft, with positive bowel sounds. Normal external genitalia with Robb catheter in place, dark yellow urine noted. No pitting edema. 2+ pulses x4. No abnormal movements. There is 1 area on the left upper outer thigh with some scant dried blood. No other significant wounds or bruising noted. Urinary Catheter Management: Robb: Cath Placed During This Visit: yes Urinary Catheter Date of Insertion: 03/25/23 Urinary Catheter Time of Insertion: 03:00 Data 03/25/23 01:10 03/25/23 04:36 Other Labs: Laboratory Results WBC 18.4 10^3/uL (4.0-10.0) H 03/25/23 01:10 RBC 5.95 10^6/uL (4.1-5.3) H 03/25/23 01:10 Hgb 18.9 g/dL (11.7-16.6) H 03/25/23 01:10 Hct 55.6 % (42.0-52.0) H 03/25/23 01:10 MCV 93.4 fl (80-94) 03/25/23 01:10 MCH 31.8 pg (28.0-34.0) 03/25/23 01:10 MCHC 34.0 g/dL (30.0-36.0) 03/25/23 01:10 RDW 12.4 % (12.1-15.1) 03/25/23 01:10 Plt Count 312 10^3/cmm (130-400) 03/25/23 01:10 MPV 10.9 fL (7.4-10.4) H 03/25/23 01:10 Neut % (Auto) 85.3 % 03/25/23 01:10 Lymph % (Auto) 7.0 % 03/25/23 01:10 [place] % (Auto) 7.0 % 03/25/23 01:10 Eos % (Auto) 0.0 % 03/25/23 01:10 Baso % (Auto) 0.2 % 03/25/23 01:10 Neut # (Auto) 15.69 10^3/uL (1.8-7.7) H 03/25/23 01:10 Lymph # (Auto) 1.3 10^3/uL (0.8-4.8) 03/25/23 01:10 [place] # (Auto) 1.3 10^3/uL (0.2-0.9) H 03/25/23 01:10 Eos # (Auto) 0.0 10^3/uL (0.0-0.8) 03/25/23 01:10 Baso # (Auto) 0.0 10^3/uL (0.0-0.1) 03/25/23 01:10 Nucleated RBC % (auto) 0 % 03/25/23 01:10 Nucleated RBCs # 0.0 /100WBC 03/25/23 01:10 Sodium 139 mmol/L (136-145) 03/25/23 04:36 Potassium 4.0 mmol/L (3.5-5.1) 03/25/23 04:36 Chloride 105 mmol/L (98-107) 03/25/23 04:36 Carbon Dioxide 17 mmol/L (22-29) L 03/25/23 04:36 Anion Gap 21.0 (5-19) H 03/25/23 04:36 BUN 52 mg/dL (6-20) H 03/25/23 04:36 Creatinine 6.1 mg/dL (0.7-1.2) H* 03/25/23 04:36 GFR Calculation 9.9 mL/min (90-130) L 03/25/23 04:36 Glucose 129 mg/dL (65-115) H 03/25/23 04:36 Calculated Osmolality 304 mOsm/kg (285-295) H 03/25/23 04:36 Calcium 8.2 mg/dL (8.5-10.5) L 03/25/23 04:36 Total Bilirubin 1.2 mg/dL (0.15-1.2) 03/25/23 01:10 AST 68 U/L (0-40) H 03/25/23 01:10 ALT 34 U/L (0-41) 03/25/23 01:10 Alkaline Phosphatase 92 U/L (40-130) 03/25/23 01:10 Creatine Kinase 2762 U/L (39-308) H* 03/25/23 01:10 Total Protein 10.6 g/dL (6.6-8.7) H 03/25/23 01:10 Albumin 7.5 g/dL (3.5-5.2) H 03/25/23 01:10 Globulin 3.1 g/dL (1.3-4.6) 03/25/23 01:10 Urine Color Yellow (Yellow) 03/25/23 03:43 Urine Appearance Turbid (CLEAR) A 03/25/23 03:43 Urine pH 5 (5-7) 03/25/23 03:43 Ur Specific [place] 1.025 (1.005-1.030) 03/25/23 03:43 Urine Protein 2+ (Negative) H 03/25/23 03:43 Urine Glucose (UA) Norm (Normal) 03/25/23 03:43 Urine Ketones 1+ (Negative) H 03/25/23 03:43 Urine Blood 3+ (Negative) H 03/25/23 03:43 Urine Nitrate Negative (Negative) 03/25/23 03:43 Urine Bilirubin 1+ (Negative) H 03/25/23 03:43 Urine Urobilinogen 1 mg/dL (Negative) H 03/25/23 03:43 Ur Leukocyte Esterase Trace (Negative) H 03/25/23 03:43 Urine RBC 5-10 /hpf (0-2) H 03/25/23 03:43 Urine WBC 10-15 /hpf (0-5) H 03/25/23 03:43 Ur Squamous Epith Cells 5-10 /hpf (0-5) H 03/25/23 03:43 Amorphous Sediment 3+ /hpf 03/25/23 03:43 Urine Bacteria 1+ /hpf (NONE) H 03/25/23 03:43 Hyaline Casts 0-4 /lpf H 03/25/23 03:43 Salicylates < 0.3 mg/dL (3-10) L 03/25/23 01:10 Urine Opiates Screen Negative ng/mL (Negative) 03/25/23 03:43 Acetaminophen < 5.0 ug/mL (10-30) L 03/25/23 01:10 Ur Barbiturates Screen Negative ng/mL (Negative) 03/25/23 03:43 Ur Phencyclidine Scrn Negative ng/mL (Negative) 03/25/23 03:43 Ur Amphetamines Screen Positive ng/mL (Negative) H 03/25/23 03:43 U Benzodiazepines Scrn Negative ng/mL (Negative) 03/25/23 03:43 Urine Cocaine Screen Negative ng/mL (Negative) 03/25/23 03:43 U Marijuana (THC) Screen Negative ng/mL (Negative) 03/25/23 03:43 Ethyl Alcohol < 10 mg/dL (0-10) 03/25/23 01:10 A&P Assessment and plan (1) Acute psychosis: Appears to be secondary to methamphetamine use. He has likely exacerbated both this and degree of acute kidney injury and rhabdomyolysis at presentation. (2) Rhabdomyolysis: From excessive exertion in the setting of acute methamphetamine intoxication as well as excessive heat (3) Acute kidney injury: Secondary to ATN from rhabdomyolysis and prerenal from dehydration. At risk of progressing to need for hemodialysis. (4) Amphetamine abuse: A chronic issue with acute use noted today Plan Leukocytosis and polycythemia likely secondary issues related to presentation Inpatient admission IV fluids, will switch to bicarbonate to alkalinize the urine Serial labs If does not start to show rapid improvement in renal function and CK levels will consult nephrology As needed Ativan currently on board in case needed Psychiatry has been consulted and appreciate their assistance in management given high dose of medications that were required initially Blood alcohol level was not detectable Unknown if smokes Supportive care otherwise When more aware of equal need to try to get history from him VTE prophylaxis: Subcu heparin GI Prophylaxis: PPI Telemetry: Ordered secondary to acute kidney injury Robb: Ordered secondary to acute kidney injury and need for close monitoring of urine output in the setting of rhabdomyolysis Line(s): Peripheral IVs presently Disposition plan: Anticipate discharge home with outpatient follow-up to primary care provider who can monitor renal function Code Status: Full code Attestations Medical Necessity Statement*: Anticipated stay greater than two midnights given the degree of acute kidney injury and rhabdomyolysis noted at admission. Currently requiring IV fluids and serial labs risk of of clinical decline necessitating initiation of hemodialysis without careful management. Additionally was significantly psychotic from methamphetamine intoxication requiring very high-dose medications for safety/sedation. Diagnoses Acute psychosis F23 Rhabdomyolysis M62.82 Acute kidney injury N17.9 Amphetamine abuse F15.10
--- NOTE | 2023-03-25 05:41 | XRR_ITS ---
PROCEDURE INFORMATION: Exam: XR Chest Exam date and time: 03/25/2023 5:57 AM Age: 47 years old Clinical indication: Other: Leukocytosis, amphetamine use, psychosis TECHNIQUE: Imaging protocol: Radiologic exam of the chest. Views: 1 view. COMPARISON: CR XR chest 1V portable [id number] 12/28/2022 2:22 PM FINDINGS: Lungs: Unremarkable. No consolidation. Pleural spaces: Unremarkable. No pleural effusion. No pneumothorax. Heart/Mediastinum: Unremarkable. No cardiomegaly. Bones/joints: Unremarkable. XR/XR chest 1V portable [id number] IMPRESSION: No acute findings.
[2023-03-25] MEDS: sodium bicarbonate 150 MEQ in dextrose 5% 1,000 ML IV (05:54)
[2023-03-25] MEDS: heparin 5,000 unit/mL INJ 1 mL 5000 UNIT SUBCUT ×2 (05:58→18:26)
[2023-03-25] MEDS: pantoprazole 40 mg SDV IVP (08:49)
--- NOTE | 2023-03-25 09:20 | PC.NURSE ---
Robb catheter removed Patient pulling on catheter saying he is going to take it out. Catheter removed by nurse.
[2023-03-25] MEDS: LORazepam 2 mg/mL INJ 1 mL IVP ×2 (10:13→20:08)
[2023-03-25 10:20] LABS: Anion Gap 18.1 (5-19); Chloride 107 mmol/L (98-107); Potassium 4.1 mmol/L (3.5-5.1); Sodium 141 mmol/L (136-145)
[2023-03-25 10:21] LABS: Magnesium 2.4 mg/dL (1.7-2.3); Phosphorus 4.6 mg/dL (2.5-4.5); Uric Acid 10.7 mg/dL (3.4-7.0)
[2023-03-25 10:34] LABS: Blood Urea Nitrogen 48 mg/dL (6-20); Calcium 8.1 mg/dL (8.5-10.5); Carbon Dioxide 20 mmol/L (22-29); Glomerular Filtration Rate 16.1 mL/min (90-130); Glucose 143 mg/dL (65-115); Osmolality Calculated 307 mOsm/kg (285-295)
--- NOTE | 2023-03-25 14:46 | P.EN_ITS ---
Event Note Event Note: Patient seen. Awake and alert. Sitter bedside. Agree with plan of care from neck band maker. Adjusting IVF rate.
--- NOTE | 2023-03-25 14:46 | W.PM.EVENTAC ---
Event Note Event Note: Patient seen. Awake and alert. Sitter bedside. Agree with plan of care from game warden. Adjusting IVF rate.
[2023-03-25 16:34] LABS: Blood Urea Nitrogen 43 mg/dL (6-20); Calcium 7.9 mg/dL (8.5-10.5); Carbon Dioxide 30 mmol/L (22-29); Chloride 98 mmol/L (98-107); Glomerular Filtration Rate 25.3 mL/min (90-130); Glucose 143 mg/dL (65-115); Osmolality Calculated 299 mOsm/kg (285-295); Sodium 138 mmol/L (136-145)
[2023-03-25 16:42] LABS: Anion Gap 13.6 (5-19); Potassium 3.6 mmol/L (3.5-5.1)
[2023-03-25] MEDS: sodium bicarbonate 150 MEQ in dextrose 5% 1,000 ML 250 MEQ IV ×2 (18:52→23:10)
[2023-03-26] VITALS (13 sets, daily range): BP systolic 103–134; BP diastolic 53–90; PULSE 66–77; RESP 16–23; TEMP 37.2; O2SAT 93–100; BMI 34.9
[2023-03-26] MEDS: LORazepam 2 mg/mL INJ 1 mL IVP ×5 (01:34→21:45)
[2023-03-26] MEDS: sodium bicarbonate 150 MEQ in dextrose 5% 1,000 ML 250 MEQ IV (03:44)
[2023-03-26] MEDS: dexmedetomidine 400 MCG in sodium chloride 0.9% (100 ml) 100 ML IV (04:57)
[2023-03-26 05:26] LABS: Basophils % 0.3 %; Eosinophils # 0.1 10^3/uL (0.0-0.8); Eosinophils % 0.8 %; Hematocrit 39.8 % (37-53); Lymphocytes # 1.9 10^3/uL (0.8-4.8); Lymphocytes % 26.7 %; Mean Corpuscular HGB Conc 34.4 g/dL (30-55); Mean Corpuscular Hemoglobin 32.1 pg (27-33); Mean Corpuscular Volume 93.2 fl (82-101); Mean Platelet Volume 11.5 fL (7.4-10.4); Monocytes # 0.7 10^3/uL (0.2-0.9); Monocytes % 10.3 %; Neutrophils # 4.41 10^3/uL (1.8-7.7); Neutrophils % 61.6 %; Nucleated Red Blood Cells % 0 %; Platelet Count 207 10^3/cmm (157-399); Red Blood Count 4.27 10^6/uL (3.85-5.65); Red Cell Distribution Width 12.3 % (12.1-15.1); White Blood Count 7.16 10^3/uL (3.29-11.43)
[2023-03-26 05:55] LABS: Alanine Aminotransferase 29 U/L (0-41); Albumin Level 3.8 g/dL (3.5-5.2); Alkaline Phosphatase 56 U/L (40-130); Anion Gap 11.2 (5-19); Aspartate Amino Transferase 56 U/L (0-40); Blood Urea Nitrogen 38 mg/dL (6-20); Calcium 8.2 mg/dL (8.5-10.5); Carbon Dioxide 36 mmol/L (22-29); Chloride 93 mmol/L (98-107); Globulin 2.7 g/dL (1.3-4.6); Glomerular Filtration Rate 46.4 mL/min (90-130); Glucose 93 mg/dL (65-115); Magnesium 2.3 mg/dL (1.7-2.3); Osmolality Calculated 293 mOsm/kg (285-295); Phosphorus 2.2 mg/dL (2.5-4.5); Potassium 3.2 mmol/L (3.5-5.1); Sodium 137 mmol/L (136-145); Total Bilirubin 0.5 mg/dL (0.15-1.2); Total Protein 6.5 g/dL (6.6-8.7)
[2023-03-26 06:43] LABS: Uric Acid 7.5 mg/dL (3.4-7.0)
[2023-03-26 07:36] LABS: Creatine Phosphokinase 2515 U/L (39-308)
[2023-03-26] MEDS: nicotine 21 mg Patch 1 PATCH TRANSDERMA (09:07)
[2023-03-26 10:37] LABS: Iron 47 ug/dL (59-158); Percent Saturation 18.1 % (20-50); Thyroid Stimulating Hormone 2.04 uIU/mL (0.27-4.20); Total Iron Binding Capacity 259 mcg/dl; Unsaturated Iron Binding 212 ug/dL (112-347); Vitamin B12 374 pg/mL (232-1245)
[2023-03-26] MEDS: sodium chlor 0.9% + KCl 20 mEq 20 MEQ/1,000 ML BAG 125 MEQ IV ×2 (11:14→19:45)
[2023-03-26] MEDS: dexmedetomidine 400 MCG in sodium chloride 0.9% (100 ml) 100 ML 14.39 MCG IV (12:43)
--- NOTE | 2023-03-26 13:38 | PC.NURSE ---
Patient crying and wanting to talk to his mother. Patient's mother called and transferred in the room on portable phone.
--- NOTE | 2023-03-26 17:15 | PM.PN ---
Subjective Subjective: Hospital course, labs appreciated. Patient on Precedex 0.5. As per the nursing staff when awake patient is agitated and has episodes of being obnoxious to the female staff. Otherwise is hemodynamically stable. On examination laying comfortably in bed, sedated but arousable. On waking up able to have conversation. Denies any nausea vomiting, headache. Has remained on room air and afebrile. Blood work appreciated for normal CBC with resolution of leukocytosis, BMP showing hypokalemia, metabolic alkalosis, creatinine down to 1.6, uric acid of 7.5, calcium of 8.2 with hypophosphatemia, CPK of more than 2500 Vitals/I&O/Wt Last Vital Signs Temp 98.7 F 03/25/23 20:00 Pulse 66 03/26/23 14:00 Resp 18 03/26/23 14:00 BP 118/80 03/26/23 14:00 Pulse Ox 97 03/26/23 14:00 O2 Del Method Room Air 03/26/23 14:00 03/26/23 03/26/23 03/26/23 06:59 14:59 22:59 Intake Total 3286.454 / 8506.454 1730.231 / 1730.231 Output Total 1500 / 3100 1400 / 1400 550 / 1950 Balance 1786.454 / 5406.454 330.231 / 330.231 -550 / -219.769 Weight last 48 hrs Weight 110.677 kg Weight 110.677 kg Weight 127.006 kg Physical Exam Narrative: General: No acute distress, sedated, on waking up AOx3 though drowsy HEENT: PERRLA, pupils bilaterally equal and reactive Chest: Normal vesicular breath sounds, no added sounds, equal good air entry bilaterally CVS: S1-S2 regular, no murmurs, no tachycardia, no gallops, no rubs Abdomen: Soft, nontender, no organomegaly, bowel sounds present Neuro: No focal deficits, no facial deformity, AO x3, power 5/5 in all limbs Urinary Catheter Management: Robb: Cath Placed During This Visit: yes, but has since been removed by the nurse Reason for Continuing Indwelling Catheter: Decision to DC Catheter Urinary Catheter Date of Insertion: 03/25/23 Urinary Catheter Time of Insertion: 03:00 Date Urinary Catheter Removed: 03/25/23 Time Urinary Catheter Discontinued: 09:20 Data 03/26/23 04:40 03/26/23 04:40 Micro: Microbiology 03/25/23 03:43 Urine Culture - Preliminary Urine,Clean Catch A&P Assessment and plan (1) Acute psychosis: Appears to be secondary to methamphetamine use. He has likely exacerbated both this and degree of acute kidney injury and rhabdomyolysis at presentation. Check HIV, hepatitis panel, blood culture. Patient placed on 96-hour hold on admission. Will benefit from formal psych evaluation. One-to-one sitter. Nicotine patch as needed. Ativan 1 mg every 6 hours as needed. For now start patient on Effexor Exar 150 mg daily, Aricept 10 mg at bedtime. (2) Rhabdomyolysis: Most likely in setting of amphetamine abuse. Continue with IV hydration. Patient developing metabolic alkalosis. Switch to normal saline with 20 minutes of potassium at 125 cc/h. (3) Acute kidney injury: Secondary to ATN from rhabdomyolysis and prerenal from dehydration. Resolving. Medical reconciliation done for nephrotoxic drugs. Strict input output charting. IV hydration as above. Monitor BMP evening. (4) Amphetamine abuse: A chronic issue with acute use noted today. Psych evaluation. Continue with Precedex and wean accordingly. Plan Leukocytosis and polycythemia likely secondary issues related to presentation. Infectious cause less likely. Blood culture as above. Follow-up urine culture. Hold off on antibiotics for now. VTE prophylaxis: Subcu heparin GI Prophylaxis: PPI Disposition plan: Plan to transfer to Neuropsych Unit once medically stable Code Status: Full code Attestations Medical Necessity Statement*: Requires further hospitalization for management of acute psychosis with rhabdomyolysis and acute kidney injury in setting of amphetamine abuse requiring Precedex drip, aggressive IV hydration as patient is at high risk of progressing to dialysis Diagnoses Acute psychosis F23 Rhabdomyolysis M62.82 Acute kidney injury N17.9 Amphetamine abuse F15.10
[2023-03-26] MEDS: heparin 5,000 unit/mL INJ 1 mL 5000 UNIT SUBCUT (17:36)
[2023-03-26 17:47] LABS: Anion Gap 8.4 (5-19); Blood Urea Nitrogen 24 mg/dL (6-20); Calcium 8.2 mg/dL (8.5-10.5); Carbon Dioxide 36 mmol/L (22-29); Chloride 98 mmol/L (98-107); Glomerular Filtration Rate 90.1 mL/min (90-130); Glucose 86 mg/dL (65-115); Osmolality Calculated 291 mOsm/kg (285-295); Potassium 3.4 mmol/L (3.5-5.1); Sodium 139 mmol/L (136-145)
--- NOTE | 2023-03-26 17:49 | P.NPUHP_ITS ---
Providers/Chief Complaint Admitting Physician: Brooke Cazares MD Chief Complaint: meth HPI NPU History of Present Illness Willem Lauren is a 47 year old male who presented to the emergency department with the following report: Chief Complaint: Psychiatric Symptoms Stated Complaint: meth Time Seen by Provider: 03/24/23 23:31 Source: EMS Mode of arrival: EMS Limitations: physical limitation History of Present Illness: 39-year-old male here with EMS complaints of methamphetamine abuse and acute psychosis. [place] was combative patient was hallucinating with EMS and combative they had to give him 400 mg of ketamine in route. Patient is now awake he is acutely psychotic he thinks God was in the room I was in there he keeps shouting his name and seeing people in the room with him. He does admit to methamphetamine abuse tonight., Patient was admitted to the ICU for definitive treatment of those issues. A psychiatric consult was requested due to his altered mental status. He presents today as a limited historian. 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 Then he began telling stories about his interactions with the legal aide as if they were actually interactions with strange individuals that he could not trust. He was somewhat upset because he felt that he was not being paranoid which is explaining the facts. So he is told a story of being chased by people and that people are out to get him. He did endorse using methamphetamine reporting that only like the second time. He reports he was taking the methamphetamine because he had a job that he needed to keep his energy up and also it was to help him lose weight because his weight makes him sluggish and not get around as quickly. He was under the influence of Precedex and we discussed as continuing this conversation although the likely plan would be for his 96-hour hold to be continued on to the neuropsychiatric unit once he was medically cleared. Meds NPU Home Medications Medication Instructions Recorded Confirmed Last Taken Type Unable to Assess 12/28/22 03/25/23 Unknown History Allergies Allergy/AdvReac Type Severity Reaction Status Date / Time No Known Allergies Allergy Verified 03/25/23 23:06 PFS NPU PFS: Medical History (Updated 03/27/23 @ 06:28 by Callum Cordoba MD) Medical history unknown Surgical History (Updated 03/25/23 @ 06:03 by Brooke Cazares MD) Surgical history unknown Mental Status Exam MSE Comments: This is an obese white male in hospital gown with limited grooming and eye contact. No abnormal movements except for psychomotor retardation. Cooperative with exam in mild distress. Speech was limited and decreased rate and volume. Mood described as confused, affect congruent. Thought process linear at times disorganized and others. Thought content: Patient did not report suicidal or homicidal ideation but was a poor historian, there were no delusions reported but clear paranoid and persecutory delusions of thinking exist, he did not report auditory visual hallucinations but he described things that were likely auditory and/or visual hallucinations. Attention, concentration and memory were limited but none were formally tested. He is alert and oriented to person and place. Insight, judgment and impulse control are impaired. Vitals/I&O/Wt Last Vital Signs Temp 98.7 F 03/25/23 20:00 Pulse 67 03/26/23 16:00 Resp 16 03/26/23 16:00 BP 103/66 03/26/23 16:00 Pulse Ox 96 03/26/23 16:00 O2 Del Method Room Air 03/26/23 16:00 03/26/23 03/26/23 03/26/23 06:59 14:59 22:59 Intake Total 3286.454 / 8506.454 1730.231 / 1730.231 Output Total 1500 / 3100 1400 / 1400 550 / 1950 Balance 1786.454 / 5406.454 330.231 / 330.231 -550 / -219.769 Weight last 48 hrs Weight 110.677 kg Weight 110.677 kg Weight 127.006 kg Physical Exam Urinary Catheter Management: Robb: Cath Placed During This Visit: yes, but has since been removed by the nurse Reason for Continuing Indwelling Catheter: Decision to DC Catheter Urinary Catheter Date of Insertion: 03/25/23 Urinary Catheter Time of Insertion: 03:00 Date Urinary Catheter Removed: 03/25/23 Time Urinary Catheter Discontinued: 09:20 Data NPU 03/27/23 04:40 03/27/23 04:40 Micro: Microbiology 03/25/23 03:43 Urine Culture - Preliminary Urine,Clean Catch Microbiology 03/25/23 03:43 Urine,Clean Catch Urine Culture - Preliminary A&P Assessment and plan (1) Acute psychosis: (2) Rhabdomyolysis: (3) Acute kidney injury: (4) Methamphetamine use disorder, severe, dependence: Plan This is a 47-year-old white male with history of methamphetamine use that is unclear in severity, frequency and duration with a recent episode of being apprehended by law enforcement for odd behavior receiving ketamine in the hands of EMS and presenting to the hospital on a 96-hour hold due to this altered mental status. 1. Continue current medication. Consider an antipsychotic. 2. Patient on 96-hour hold and should be transferred to the neuropsychiatric unit when medically cleared. 3. We will continue to follow. Attestations NPU Medical Necessity Statement*: N/A. Please see primary team note for medical necessity but will accept him in the neuropsychiatric unit when medically cleared. Coding Level of Care Code Acute Code for [facility] Diagnoses Acute psychosis F23 Rhabdomyolysis M62.82 Acute kidney injury N17.9 Methamphetamine use disorder, severe, dependence F15.20
[2023-03-26 20:15] LABS: HIV 1 & 2 Antibody Non-Reactive (Non-Reactiv); HIV 1 & 2 Antigen Non-Reactive (Non-Reactiv)
[2023-03-26 21:30] LABS: Hepatitis A Antibody IgM Non-Reactive (Nonreactive); Hepatitis B Core AB, Total Non-Reactive (Nonreactive); Hepatitis B Surface AB 3.5 (11.5-1000); Hepatitis B Surface Antigen Non-Reactive (Nonreactive); Hepatitis C Virus Antibody Non-Reactive (Nonreactive)
[2023-03-26] MEDS: donepezil 5 MG Tablet 10 MG PO (21:44)
[2023-03-26] MEDS: dexmedetomidine 400 MCG in sodium chloride 0.9% (100 ml) 100 ML 17.27 MCG IV (21:46)
[2023-03-27] VITALS (10 sets, daily range): BP systolic 148–159; BP diastolic 91–106; PULSE 64–78; RESP 18–20; TEMP 36.8; O2SAT 94–98; BMI 34.9
[2023-03-27] MEDS: sodium chlor 0.9% + KCl 20 mEq 20 MEQ/1,000 ML BAG 125 MEQ IV (03:22)
[2023-03-27 04:58] LABS: Basophils % 0.4 %; Eosinophils # 0.1 10^3/uL (0.0-0.8); Eosinophils % 2.4 %; Hematocrit 38.9 % (37-53); Lymphocytes # 1.4 10^3/uL (0.8-4.8); Lymphocytes % 30.8 %; Mean Corpuscular HGB Conc 32.9 g/dL (30-55); Mean Corpuscular Hemoglobin 31.9 pg (27-33); Mean Platelet Volume 11.2 fL (7.4-10.4); Monocytes # 0.4 10^3/uL (0.2-0.9); Monocytes % 9.4 %; Neutrophils # 2.61 10^3/uL (1.8-7.7); Nucleated Red Blood Cells % 0 %; Platelet Count 158 10^3/cmm (157-399); Red Blood Count 4.01 10^6/uL (3.85-5.65); Red Cell Distribution Width 12.2 % (12.1-15.1); White Blood Count 4.58 10^3/uL (3.29-11.43)
[2023-03-27 05:16] LABS: Alanine Aminotransferase 25 U/L (0-41); Albumin Level 3.5 g/dL (3.5-5.2); Alkaline Phosphatase 51 U/L (40-130); Anion Gap 10.7 (5-19); Aspartate Amino Transferase 35 U/L (0-40); Blood Urea Nitrogen 18 mg/dL (6-20); Calcium 8.4 mg/dL (8.5-10.5); Carbon Dioxide 32 mmol/L (22-29); Chloride 99 mmol/L (98-107); Globulin 2.1 g/dL (1.3-4.6); Glomerular Filtration Rate 90.1 mL/min (90-130); Glucose 163 mg/dL (65-115); Osmolality Calculated 291 mOsm/kg (285-295); Potassium 3.7 mmol/L (3.5-5.1); Sodium 138 mmol/L (136-145); Total Bilirubin 0.2 mg/dL (0.15-1.2); Total Protein 5.6 g/dL (6.6-8.7)
[2023-03-27 05:19] LABS: Chol HDL Ratio 1.88 mg/dL (1.0-5.00); Cholesterol 122 mg/dL (0-200); HDL Cholesterol 65 mg/dL (60-100); LDL Cholesterol Calculated 26 mg/dL (50-129); Magnesium 1.9 mg/dL (1.7-2.3); Triglycerides 157 mg/dL (0-150); VLDL Cholestrol Calculation 31 mg/dL (0-30)
[2023-03-27 05:30] LABS: Creatine Phosphokinase 764 U/L (39-308); Folate Level 10.9 ng/mL (4.5-32.2)
[2023-03-27] MEDS: dexmedetomidine 400 MCG in sodium chloride 0.9% (100 ml) 100 ML 11.51 MCG IV (05:41)
[2023-03-27 05:57] LABS: Estmated Average Glucose 108; Hemoglobin A1C 5.4 % (4.0-6.0)
[2023-03-27] MEDS: heparin 5,000 unit/mL INJ 1 mL 5000 UNIT SUBCUT ×2 (06:52→17:23)
[2023-03-27] MEDS: nicotine 21 mg Patch 1 PATCH TRANSDERMA (08:08)
[2023-03-27] MEDS: venlafaxine ER (24HR) 150 mg Capsule PO (08:09)
--- NOTE | 2023-03-27 10:19 | W.PM.NPUPNS ---
Subjective NPU Subjective: Patient presented today continuing to report that the situation is generated by his use of methamphetamine but downplays how frequently this occurs. We discussed the importance of treatment and he reported being open to coming down to the unit albeit on a 96-hour hold to see what ways we could help avoid future recurrence. Mental Status Exam MSE Comments: This is an obese white male in hospital gown with limited grooming and eye contact. No abnormal movements except for psychomotor retardation. Cooperative with exam in mild distress. Speech was limited and decreased rate and volume. Mood described as confused, affect congruent. Thought process linear at times disorganized and others. Thought content: Patient did not report suicidal or homicidal ideation but was a poor historian, there were no delusions reported but clear paranoid and persecutory delusions of thinking exist, he did not report auditory visual hallucinations but he described things that were likely auditory and/or visual hallucinations. Attention, concentration and memory were limited but none were formally tested. He is alert and oriented to person and place. Insight, judgment and impulse control are impaired. Vitals/I&O/Wt Last Vital Signs Temp 98.9 F 03/26/23 19:00 Pulse 75 03/27/23 08:00 Resp 20 H 03/26/23 18:00 BP 134/85 03/26/23 22:00 Pulse Ox 98 03/27/23 08:00 O2 Del Method Room Air 03/26/23 18:00 03/26/23 03/27/23 03/27/23 22:59 06:59 14:59 Intake Total 1707.233 / 3437.464 1034.380 / 4471.844 350 / 350 Output Total 550 / 1950 3000 / 4950 Balance 1157.233 / 1487.464 -1965.620 / -478.156 350 / 350 Weight last 48 hrs Weight 110.677 kg Weight 110.677 kg Physical Exam Urinary Catheter Management: Robb: Cath Placed During This Visit: yes, but has since been removed by the nurse Reason for Continuing Indwelling Catheter: Decision to DC Catheter Urinary Catheter Date of Insertion: 03/25/23 Urinary Catheter Time of Insertion: 03:00 Date Urinary Catheter Removed: 03/25/23 Time Urinary Catheter Discontinued: 09:20 Data NPU 03/27/23 04:40 03/27/23 04:40 Micro: Microbiology 03/27/23 04:34 Blood Culture - Preliminary Blood SPECIMEN COLLECTED 03/27/23 04:34 Blood Culture - Preliminary Blood SPECIMEN COLLECTED 03/25/23 03:43 Urine Culture - Preliminary Urine,Clean Catch Microbiology 03/27/23 04:34 Blood Blood Culture - Preliminary SPECIMEN COLLECTED 03/27/23 04:34 Blood Blood Culture - Preliminary SPECIMEN COLLECTED 03/25/23 03:43 Urine,Clean Catch Urine Culture - Preliminary A&P Assessment and plan (1) Acute psychosis: (2) Rhabdomyolysis: (3) Acute kidney injury: (4) Methamphetamine use disorder, severe, dependence: Plan This is a 47-year-old white male with history of methamphetamine use that is unclear in severity, frequency and duration with a recent episode of being apprehended by law enforcement for odd behavior receiving ketamine in the hands of EMS and presenting to the hospital on a 96-hour hold due to this altered mental status. 1. Continue current medication. Consider an antipsychotic. 2. Patient on 96-hour hold and should be transferred to the neuropsychiatric unit when medically cleared. May need to put in 21-day hold depending on when the 96-hour hold is up. 3. Initiate every 15 minute checks for safety on unit. 4. Encourage individual, group and milieu therapies. 5. Encourage sober living treatment after discharge at the highest level of care to which she is willing to commit. Attestations NPU Medical Necessity Statement*: Inpatient hospitalization is medically necessary and the clinically appropriate intervention at this time. We will monitor medications and make changes as indicated. In the hospital for over 2 midnights. Likely length of stay 2 to 4 days. Coding Level of Care Code Acute Code for [facility] Diagnoses Acute psychosis F23 Rhabdomyolysis M62.82 Acute kidney injury N17.9 Methamphetamine use disorder, severe, dependence F15.20
--- NOTE | 2023-03-27 14:15 | P.PN_ITS ---
Subjective Subjective: No acute events overnight. Patient has remained hemodynamically stable and afebrile. He has been off Precedex since early today morning. Patient is back to his baseline mentation. No episodes of agitation overnight. Has remained hemodynamically stable and afebrile. Urine output appropriate. Blood was appreciated for a stable CBC, CMP showing resolution of PATRICIA, improvement in metabolic alkalosis, CPK down to 764 from more than 2500. Vitals/I&O/Wt Last Vital Signs Temp 98.9 F 03/26/23 19:00 Pulse 75 03/27/23 08:00 Resp 20 H 03/26/23 18:00 BP 134/85 03/26/23 22:00 Pulse Ox 97 03/27/23 10:00 O2 Del Method Room Air 03/26/23 18:00 03/26/23 03/27/23 03/27/23 22:59 06:59 14:59 Intake Total 1707.233 / 3437.464 1034.380 / 4471.844 450 / 450 Output Total 550 / 1950 3000 / 4950 Balance 1157.233 / 1487.464 -1965.620 / -478.156 450 / 450 Weight last 48 hrs Weight 110.677 kg Weight 110.677 kg Physical Exam Narrative: General: No acute distress, sedated, on waking up AOx3 though drowsy HEENT: PERRLA, pupils bilaterally equal and reactive Chest: Normal vesicular breath sounds, no added sounds, equal good air entry bilaterally CVS: S1-S2 regular, no murmurs, no tachycardia, no gallops, no rubs Abdomen: Soft, nontender, no organomegaly, bowel sounds present Neuro: No focal deficits, no facial deformity, AO x3, power 5/5 in all limbs Urinary Catheter Management: Robb: Cath Placed During This Visit: yes, but has since been removed by the nurse Reason for Continuing Indwelling Catheter: Decision to DC Catheter Urinary Catheter Date of Insertion: 03/25/23 Urinary Catheter Time of Insertion: 03:00 Date Urinary Catheter Removed: 03/25/23 Time Urinary Catheter Discontinued: 09:20 Data 03/27/23 04:40 03/27/23 04:40 Micro: Microbiology 03/25/23 03:43 Urine Culture - Final Urine,Clean Catch 03/27/23 04:34 Blood Culture - Preliminary Blood SPECIMEN COLLECTED 03/27/23 04:34 Blood Culture - Preliminary Blood SPECIMEN COLLECTED A&P Assessment and plan (1) Acute psychosis: Appears to be secondary to methamphetamine use. He has likely exacerbated both this and degree of acute kidney injury and rhabdomyolysis at presentation. Check HIV, hepatitis panel, blood culture. Patient placed on 96-hour hold on admission. Will benefit from formal psych evaluation. One-to-one sitter. Nicotine patch as needed. Ativan 1 mg every 6 hours as needed. For now start patient on Effexor Exar 150 mg daily, Aricept 10 mg at bedtime. (2) Rhabdomyolysis: Most likely in setting of amphetamine abuse. Continue with IV hydration. Patient developing metabolic alkalosis. Switch to normal saline with 20 minutes of potassium at 125 cc/h. (3) Acute kidney injury: Secondary to ATN from rhabdomyolysis and prerenal from dehydration. Resolving. Medical reconciliation done for nephrotoxic drugs. Strict input output charting. IV hydration as above. Monitor BMP evening. (4) Amphetamine abuse: A chronic issue with acute use noted today. Psych evaluation. Continue with Precedex and wean accordingly. Plan Leukocytosis and polycythemia likely secondary issues related to presentation. Infectious cause less likely. Blood culture as above. Follow-up urine culture. Hold off on antibiotics for now. VTE prophylaxis: Subcu heparin GI Prophylaxis: PPI Disposition plan: Plan to transfer to Neuropsych Unit once medically stable Code Status: Full code Plan for the day: Continue with Aricept and venetoclax and started yesterday. Stop Precedex. Maintain saturation over 90, mean artery pressure more than 65. Decrease IV fluid to 75 cc/h. If patient is tolerating oral diet well consistently can stop IV fluids during the day. Continue with nicotine patch. Follow-up blood cultures. Transfer to Neuropsych Unit for further evaluation and management. 96-hour hold. Patient asking if he can be discharged. Patient was explained that he is on 96- hour hold given the presentation and is agreeable for evaluation with Neuropsych Unit as needed. Attestations Medical Necessity Statement*: Requires further hospitalization for management of acute psychosis in setting of amphetamine abuse, resolution of acute kidney injury and rhabdomyolysis while patient remains 96-hour hold and is being transferred to Neuropsych Unit. Diagnoses Acute psychosis F23 Rhabdomyolysis M62.82 Acute kidney injury N17.9 Amphetamine abuse F15.10
--- NOTE | 2023-03-27 19:59 | PC.NURSE ---
report called to [facility] 03/27/2023 @ 195.
--- NOTE | 2023-03-27 20:10 | PC.NURSE ---
IV removed from left forearm.
[2023-03-27] MEDS: donepezil 5 MG Tablet 10 MG PO (21:46)
[2023-03-28 06:00] VITALS: BP 152/87; PULSE 67; RESP 18; TEMP 37; O2SAT 98; BMI 34.9
[2023-03-28] MEDS: heparin 5,000 unit/mL INJ 1 mL 5000 UNIT SUBCUT (06:15)
[2023-03-28] MEDS: nicotine 2 mg Gum BUCCAL (06:43)
[2023-03-28] MEDS: nicotine 21 mg Patch 1 PATCH TRANSDERMA (09:33)
[2023-03-28] MEDS: venlafaxine ER (24HR) 150 mg Capsule PO (09:33)
[2023-03-28 14:00] VITALS: BP 133/80; PULSE 75; RESP 16; TEMP 36.8; O2SAT 96
--- NOTE | 2023-03-28 17:02 | W.PM.NPUPNS ---
Subjective NPU Subjective: Patient presented today reporting that he is feeling better and reports per staff is that he is demonstrating greater clarity. He continues to be resistant to the idea of taking the medication or engaging in any significant inpatient/outpatient addiction treatment. He seems a little more open to some basic outpatient services. He is starting to become more focused on returning to work. Mental Status Exam MSE Comments: This is an obese white male in hospital gown with limited grooming and eye contact. No abnormal movements except for resolving mild psychomotor retardation. Cooperative with exam in mild distress. Speech was limited and decreased rate and volume. Mood described as feeling better, affect congruent. Thought process linear and at times organized. Thought content: Patient did not report suicidal or homicidal ideation, there were no delusions reported and less paranoid and persecutory delusions of thinking exist, he did not report auditory visual hallucinations but he described things that were likely auditory and/or visual hallucinations. Attention, concentration and memory were improving but none were formally tested. He is alert and oriented to person and place. Insight, judgment and impulse control are limited versus impaired. Vitals/I&O/Wt Last Vital Signs Temp 98.3 F 03/28/23 14:00 Pulse 75 03/28/23 14:00 Resp 16 03/28/23 14:00 BP 133/80 03/28/23 14:00 Pulse Ox 96 03/28/23 14:00 O2 Del Method Room Air 03/28/23 14:00 Weight last 48 hrs Weight 110.677 kg Weight 110.677 kg Weight 110.677 kg Physical Exam Urinary Catheter Management: Robb: Cath Placed During This Visit: yes, but has since been removed by the nurse Reason for Continuing Indwelling Catheter: Decision to DC Catheter Urinary Catheter Date of Insertion: 03/25/23 Urinary Catheter Time of Insertion: 03:00 Date Urinary Catheter Removed: 03/25/23 Time Urinary Catheter Discontinued: 09:20 Data NPU 03/27/23 04:40 03/27/23 04:40 Micro: Microbiology 03/27/23 04:34 Blood Culture - Preliminary Blood NEGATIVE TO DATE 03/27/23 04:34 Blood Culture - Preliminary Blood NEGATIVE TO DATE Microbiology 03/27/23 04:34 Blood Blood Culture - Preliminary NEGATIVE TO DATE 03/27/23 04:34 Blood Blood Culture - Preliminary NEGATIVE TO DATE A&P Assessment and plan (1) Acute psychosis: (2) Rhabdomyolysis: (3) Acute kidney injury: (4) Methamphetamine use disorder, severe, dependence: Plan This is a 47-year-old white male with history of methamphetamine use that is unclear in severity, frequency and duration with a recent episode of being apprehended by law enforcement for odd behavior receiving ketamine in the hands of EMS and presenting to the hospital on a 96-hour hold due to this altered mental status. 1. Continue current medication. Consider an antipsychotic. Currently he is resistant to medication. 2. File for 21-day hold as we are currently unclear of the resolution of his psychosis and his hold is up on Friday. 3. Initiate every 15 minute checks for safety on unit. 4. Encourage individual, group and milieu therapies. 5. Encourage sober living treatment after discharge at the highest level of care to which she is willing to commit. Involuntary Hold Information 96 Hour Hold: 96 Hour Involuntary Admission: Yes 96 Hour Hold Ending Date: 03/31/23 96 Hour Hold Ending Time: 12:40 Attestations NPU Medical Necessity Statement*: Inpatient hospitalization is medically necessary and the clinically appropriate intervention at this time. We will monitor medications and make changes as indicated. Likely length of stay 2 to 4 days. Coding Level of Care Code Acute Code for [facility] Diagnoses Acute psychosis F23 Rhabdomyolysis M62.82 Acute kidney injury N17.9 Methamphetamine use disorder, severe, dependence F15.20
[2023-03-28] MEDS: donepezil 5 MG Tablet 10 MG PO (20:11)
[2023-03-28 20:18] VITALS: BP 152/96; PULSE 64; RESP 18; TEMP 36.8; O2SAT 98
[2023-03-29 06:00] VITALS: BP 135/88; PULSE 66; RESP 17; O2SAT 98; BMI 34.9
[2023-03-29] MEDS: heparin 5,000 unit/mL INJ 1 mL 5000 UNIT SUBCUT (06:08)
[2023-03-29] MEDS: nicotine 21 mg Patch 1 PATCH TRANSDERMA (08:01)
[2023-03-29] MEDS: venlafaxine ER (24HR) 150 mg Capsule PO (08:01)
[2023-03-29 13:50] VITALS: BP 125/82; PULSE 73; RESP 16; TEMP 36.7; O2SAT 96
--- NOTE | 2023-03-29 18:30 | P.NPUPN_ITS ---
Subjective NPU Subjective: Patient presented today reporting that he has been advised that he lost his job. He does report however that his balance said that once she got help he could return. 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 We discussed that being up to the next doctor but that its a possibility. Mental Status Exam MSE Comments: This is an obese white male in hospital gown with adequate grooming and eye contact. No abnormal movements. Cooperative with exam in mild distress. Speech was more spontaneous and more normal rate and volume. Mood described as feeling better, affect congruent. Thought process organized. Thought content: Patient did not report suicidal or homicidal ideation, there were no delusions reported and less paranoid and persecutory delusions of thinking exist, he did not report auditory visual hallucinations but he described things that were likely auditory and/or visual hallucinations. Attention, concentration and memory were improving but none were formally tested. He is alert and oriented to person and place. Insight, judgment and impulse control are limited. Vitals/I&O/Wt Last Vital Signs Temp 98.1 F 03/29/23 21:18 Pulse 73 03/29/23 21:18 Resp 17 03/29/23 21:18 BP 121/84 03/29/23 21:18 Pulse Ox 97 03/29/23 21:18 O2 Del Method Room Air 03/29/23 06:00 Weight last 48 hrs Weight 110.677 kg Physical Exam Urinary Catheter Management: Robb: Cath Placed During This Visit: yes, but has since been removed by the nurse Reason for Continuing Indwelling Catheter: Decision to DC Catheter Urinary Catheter Date of Insertion: 03/25/23 Urinary Catheter Time of Insertion: 03:00 Date Urinary Catheter Removed: 03/25/23 Time Urinary Catheter Discontinued: 09:20 Data NPU 03/27/23 04:40 03/27/23 04:40 A&P Assessment and plan (1) Acute psychosis: (2) Rhabdomyolysis: (3) Acute kidney injury: (4) Methamphetamine use disorder, severe, dependence: Plan This is a 47-year-old white male with history of methamphetamine use that is unclear in severity, frequency and duration with a recent episode of being apprehended by law enforcement for odd behavior receiving ketamine in the hands of EMS and presenting to the hospital on a 96-hour hold due to this altered mental status. 1. Continue current medication. Consider an antipsychotic. Currently he is resistant to medication. 2. 21-day hold on 03/28/2023 however seeming less likely that that extension is necessary. 3. Initiate every 15 minute checks for safety on unit. 4. Encourage individual, group and milieu therapies. 5. Encourage sober living treatment after discharge at the highest level of care to which he is willing to commit. 6. Patient certainly would benefit from sober living treatment but currently very focused on getting back to possible job opportunity for economic resources. Involuntary Hold Information 96 Hour Hold: 96 Hour Involuntary Admission: Yes 96 Hour Hold Ending Date: 03/31/23 96 Hour Hold Ending Time: 12:40 Attestations NPU Medical Necessity Statement*: Inpatient hospitalization is medically necessary and the clinically appropriate intervention at this time. We will monitor medications and make changes as indicated. Likely length of stay 2 to 4 days. Coding Level of Care Code Acute Code for [facility] Diagnoses Acute psychosis F23 Rhabdomyolysis M62.82 Acute kidney injury N17.9 Methamphetamine use disorder, severe, dependence F15.20
[2023-03-29] MEDS: trazodone 50 mg Tablet PO (20:52)
[2023-03-29] MEDS: donepezil 5 MG Tablet 10 MG PO (20:52)
[2023-03-29 21:18] VITALS: BP 121/84; PULSE 73; RESP 17; TEMP 36.7; O2SAT 97
[2023-03-30 06:00] VITALS: RESP 16
--- NOTE | 2023-03-30 07:00 | W.PM.NPUPNS ---
Subjective NPU Subjective: Patient presented today reporting that he was feeling fine. There were no reports by staff of any psychotic notions. He continued to be quite focused on returning to work and reporting that he was going to avoid all drugs of abuse but that he needed to be economically functional for things and get bad in his life. We discussed that Dr. Villafana be back tomorrow it would be the primary determinant of discharge but would have my input and a cross covering conversation. Mental Status Exam MSE Comments: This is an obese white male in hospital gown with adequate grooming and eye contact. No abnormal movements. Cooperative with exam in mild distress. Speech was more spontaneous and more normal rate and volume. Mood described as feeling better, affect congruent. Thought process organized. Thought content: Patient did not report suicidal or homicidal ideation, there were no delusions reported and none noted, he did not report auditory visual hallucinations but he described things that were likely auditory and/or visual hallucinations. Attention, concentration and memory were improving but none were formally tested. He is alert and oriented x3. Insight, judgment and impulse control are limited. Vitals/I&O/Wt Last Vital Signs Temp 98.1 F 03/29/23 21:18 Pulse 73 03/29/23 21:18 Resp 16 03/30/23 06:00 BP 121/84 03/29/23 21:18 Pulse Ox 97 03/29/23 21:18 O2 Del Method Room Air 03/29/23 06:00 Weight last 48 hrs Weight 117.208 kg Weight 110.677 kg Physical Exam Urinary Catheter Management: Robb: Cath Placed During This Visit: yes, but has since been removed by the nurse Reason for Continuing Indwelling Catheter: Decision to DC Catheter Urinary Catheter Date of Insertion: 03/25/23 Urinary Catheter Time of Insertion: 03:00 Date Urinary Catheter Removed: 03/25/23 Time Urinary Catheter Discontinued: 09:20 Data NPU 03/27/23 04:40 03/27/23 04:40 A&P Assessment and plan (1) Acute psychosis: (2) Rhabdomyolysis: (3) Acute kidney injury: (4) Methamphetamine use disorder, severe, dependence: Plan This is a 47-year-old white male with history of methamphetamine use that is unclear in severity, frequency and duration with a recent episode of being apprehended by law enforcement for odd behavior receiving ketamine in the hands of EMS and presenting to the hospital on a 96-hour hold due to this altered mental status. 1. Continue current medication. Consider an antipsychotic. Currently he is resistant to additional medication. His apparent psychosis has not resolved the further he is removed from the methamphetamine and so not starting an antipsychotic is reasonable. 2. 21-day hold on 03/28/2023 however seeming less likely that that extension is necessary. 3. Initiate every 15 minute checks for safety on unit. 4. Encourage individual, group and milieu therapies. 5. Encourage sober living treatment after discharge at the highest level of care to which he is willing to commit. 6. Patient certainly would benefit from sober living treatment but currently very focused on getting back to possible job opportunity for economic resources 7. Likely discharge tomorrow.. Involuntary Hold Information 96 Hour Hold: 96 Hour Involuntary Admission: Yes 96 Hour Hold Ending Date: 03/31/23 96 Hour Hold Ending Time: 12:40 Attestations NPU Medical Necessity Statement*: Inpatient hospitalization is medically necessary and the clinically appropriate intervention at this time. We will monitor medications and make changes as indicated. Likely length of stay 1-3 days. Coding Level of Care Code Acute Code for [facility] Fwd Diagnoses Acute psychosis F23 Rhabdomyolysis M62.82 Acute kidney injury N17.9 Methamphetamine use disorder, severe, dependence F15.20
[2023-03-30] MEDS: venlafaxine ER (24HR) 150 mg Capsule PO (09:25)
[2023-03-30 14:00] VITALS: BP 125/84; PULSE 84; RESP 16; O2SAT 96
[2023-03-30] MEDS: trazodone 50 mg Tablet PO (20:00)
[2023-03-30] MEDS: donepezil 5 MG Tablet 10 MG PO (20:00)
[2023-03-30 22:00] VITALS: BP 122/78; PULSE 79; RESP 18; TEMP 37.1; O2SAT 97
[2023-03-31 06:00] VITALS: BP 136/80; PULSE 66; RESP 16; TEMP 37; O2SAT 94
[2023-03-31] MEDS: venlafaxine ER (24HR) 150 mg Capsule PO (08:02)
[2023-03-31] MEDS: nicotine 2 mg Gum BUCCAL ×2 (08:53→10:51)
[2023-03-31] MEDS: nicotine 4 mg lozenge MUCOUS MEM (12:56)
[2023-03-31 14:00] VITALS: BP 136/87; PULSE 69; RESP 16; TEMP 36.9; O2SAT 97
--- NOTE | 2023-03-31 16:06 | W.PM.NPUDCS ---
Diagnoses at Discharge Discharge Diagnosis (1) Acute psychosis: Status: Acute (2) Rhabdomyolysis: Status: Acute (3) Acute kidney injury: Status: Acute (4) Methamphetamine use disorder, severe, dependence: Status: Acute Reason for Visit Reason for Visit: meth Brief History: History of Present Illness Willem Lauren is a 47 year old male who presented to the emergency department with the following report: Chief Complaint: Psychiatric Symptoms Stated Complaint: meth Time Seen by Provider: 03/24/23 23:31 Source: EMS Mode of arrival: EMS Limitations: physical limitation History of Present Illness: ? 39-year-old male here with EMS complaints of methamphetamine abuse and acute psychosis.? [place] was combative patient was hallucinating with EMS and combative they had to give him 400 mg of ketamine in route.? Patient is now awake he is acutely psychotic he thinks God was in the room I was in there he keeps shouting his name and seeing people in the room with him.? He does admit to methamphetamine abuse tonight., Patient was admitted to the ICU for definitive treatment of those issues. A psychiatric consult was requested due to his altered mental status.? He presents today as a limited historian.? First he identifies himself as knowing this life underwriter from the past and we had not previously met.? Then he began telling stories about his interactions with the ssas developer as if they were actually interactions with strange individuals that he could not trust.? He was somewhat upset because he felt that he was not being paranoid which is explaining the facts.? So he is told a story of being chased by people and that people are out to get him.? He did endorse using methamphetamine reporting that only like the second time.? He reports he was taking the methamphetamine because he had a job that he needed to keep his energy up and also it was to help him lose weight because his weight makes him sluggish and not get around as quickly.? He was under the influence of Precedex and we discussed as continuing this conversation although the likely plan would be for his 96-hour hold to be continued on to the neuropsychiatric unit once he was medically cleared. Hospital Course Hospital Course During the hospitalization, the patient had routine laboratory studies which were within normal limits except for a few outliers.? Additionally, there was a general medical evaluation which was also within normal limits and revealed no new acute processes.? At the time of discharge, lethality was denied and psychosis was resolving.? Mood and anxiety were well managed.? The patient endorsed a plan to avoid all drugs of abuse and follow up with the aftercare recommendations of the treatment team.? The patient was evaluated and deemed to be absent credible lethality and had achieved the maximum benefit from an inpatient hospitalization, and so was discharged.? Involuntary Hold Information 96 Hour Hold: 96 Hour Involuntary Admission: Yes 96 Hour Hold Ending Date: 03/31/23 96 Hour Hold Ending Time: 12:40 Mental Status Exam MSE Comments: This is an obese white male in hospital gown with adequate grooming and eye contact. No abnormal movements. Cooperative with exam in mild distress. Speech was more spontaneous and normal in rate and volume. Mood described as feeling better, affect was bright on discharge. Thought process was organized. Thought content: Patient did not report suicidal or homicidal ideation, there were no delusions reported and none noted, he did not report auditory visual hallucinations and did not appear to be responding to internal stimuli. Attention, concentration and memory were improving but none were formally tested. He is alert and oriented x3. Insight remained poor. His judgment was improved. His impulse control appeared fair. Physical Exam Urinary Catheter Management: Robb: Cath Placed During This Visit: yes, but has since been removed by the nurse Reason for Continuing Indwelling Catheter: Decision to DC Catheter Urinary Catheter Date of Insertion: 03/25/23 Urinary Catheter Time of Insertion: 03:00 Date Urinary Catheter Removed: 03/25/23 Time Urinary Catheter Discontinued: 09:20 Discharge Data Studies Completed and Pending: Completed Studies During Hospitalization Category Date Time Status CXRP [XR chest 1V portable [id number]] R outine Exams 03/25/23 05:41 Completed Pending at discharge Category Date Time Status Blood Culture AM LABS Lab 03/27/23 04:34 Results Radiology Impressions Chest X-Ray 03/25/23 05:41 IMPRESSION: No acute findings. Laboratory Results WBC 4.58 10^3/uL (3.2 9-11.43) 03/27/23 04:40 RBC 4.01 10^6/uL (3.8 5-5.65) 03/27/23 04:40 Hgb 12.80 g/dL (11.27 -16.99) 03/27/23 04:40 Hct 38.9 % (37-53) 03/27/23 04:40 MCV 97.0 fl (82-101) 03/27/23 04:40 MCH 31.9 pg (27-33) 03/27/23 04:40 MCHC 32.9 g/dL (30-55) 03/27/23 04:40 RDW 12.2 % (12.1-15.1 ) 03/27/23 04:40 Plt Count 158 10^3/cmm (157 -399) 03/27/23 04:40 MPV 11.2 fL (7.4-10.4 ) H 03/27/23 04:40 Neut % (Auto) 57.0 % 03/27/23 04:40 Lymph % (Auto) 30.8 % 03/27/23 04:40 Luna % (Auto) 9.4 % 03/27/23 04:40 Eos % (Auto) 2.4 % 03/27/23 04:40 Baso % (Auto) 0.4 % 03/27/23 04:40 Neut # (Auto) 2.61 10^3/uL (1.8 -7.7) 03/27/23 04:40 Lymph # (Auto) 1.4 10^3/uL (0.8- 4.8) 03/27/23 04:40 Luna # (Auto) 0.4 10^3/uL (0.2- 0.9) 03/27/23 04:40 Eos # (Auto) 0.1 10^3/uL (0.0- 0.8) 03/27/23 04:40 Baso # (Auto) 0.0 10^3/uL (0.0- 0.1) 03/27/23 04:40 Nucleated RBC % (a uto) 0 % 03/27/23 04:40 Nucleated RBCs # 0.0 /100WBC 03/27/23 04:40 Sodium 138 mmol/L (136-1 45) 03/27/23 04:40 Potassium 3.7 mmol/L (3.5-5 .1) 03/27/23 04:40 Chloride 99 mmol/L (98-107 ) 03/27/23 04:40 Carbon Dioxide 32 mmol/L (22-29) H 03/27/23 04:40 Anion Gap 10.7 (5-19) 03/27/23 04:40 BUN 18 mg/dL (6-20) 03/27/23 04:40 Creatinine 0.9 mg/dL (0.7-1. 2) 03/27/23 04:40 GFR Calculation 90.1 mL/min (90-1 30) 03/27/23 04:40 Glucose 163 mg/dL (65-115 ) H 03/27/23 04:40 Estimat Average Gl ucose 108 03/27/23 04:40 Hemoglobin A1c 5.4 % (4.0-6.0) 03/27/23 04:40 Calculated Osmolal ity 291 mOsm/kg (285- 295) 03/27/23 04:40 Uric Acid 7.5 mg/dL (3.4-7. 0) H 03/26/23 04:40 Calcium 8.4 mg/dL (8.5-10 .5) L 03/27/23 04:40 Phosphorus 2.2 mg/dL (2.5-4. 5) L D 03/26/23 04:40 Magnesium 1.9 mg/dL (1.7-2. 3) 03/27/23 04:40 Iron 47 ug/dL (59-158) L 03/26/23 04:40 TIBC 259 mcg/dl 03/26/23 04:40 % Saturation 18.1 % (20-50) L 03/26/23 04:40 Unsat Iron Binding 212 ug/dL (112-34 7) 03/26/23 04:40 Total Bilirubin 0.2 mg/dL (0.15-1 .2) 03/27/23 04:40 AST 35 U/L (0-40) 03/27/23 04:40 ALT 25 U/L (0-41) 03/27/23 04:40 Alkaline Phosphata se 51 U/L (40-130) 03/27/23 04:40 Creatine Kinase 764 U/L (39-308) H* 03/27/23 04:40 Total Protein 5.6 g/dL (6.6-8.7 ) L 03/27/23 04:40 Albumin 3.5 g/dL (3.5-5.2 ) 03/27/23 04:40 Globulin 2.1 g/dL (1.3-4.6 ) 03/27/23 04:40 Triglycerides 157 mg/dL (0-150) H 03/27/23 04:40 Cholesterol 122 mg/dL (0-200) 03/27/23 04:40 LDL Cholesterol, C alc 26 mg/dL (50-129) L 03/27/23 04:40 Total VLDL Cholest tirso 31 mg/dL (0-30) H 03/27/23 04:40 HDL Cholesterol 65 mg/dL (60-100) 03/27/23 04:40 Cholesterol/HDL Ra hannah 1.88 mg/dL (1.0-5 .00) 03/27/23 04:40 Vitamin B12 374 pg/mL (232-12 45) 03/26/23 04:40 Folate 10.9 ng/mL (4.5-3 2.2) 03/27/23 04:40 TSH 2.04 uIU/mL (0.27 -4.20) 03/26/23 04:40 Urine Color Yellow (Yellow) 03/25/23 03:43 Urine Appearance Turbid (CLEAR) A 03/25/23 03:43 Urine pH 5 (5-7) 03/25/23 03:43 Ur Specific Gravit y 1.025 (1.005-1.0 30) 03/25/23 03:43 Urine Protein 2+ (Negative) H 03/25/23 03:43 Urine Glucose (UA) Norm (Normal) 03/25/23 03:43 Urine Ketones 1+ (Negative) H 03/25/23 03:43 Urine Blood 3+ (Negative) H 03/25/23 03:43 Urine Nitrate Negative (Negati ve) 03/25/23 03:43 Urine Bilirubin 1+ (Negative) H 03/25/23 03:43 Urine Urobilinogen 1 mg/dL (Negative ) H 03/25/23 03:43 Ur Leukocyte Ursula ase Trace (Negative) H 03/25/23 03:43 Urine RBC 5-10 /hpf (0-2) H 03/25/23 03:43 Urine WBC 10-15 /hpf (0-5) H 03/25/23 03:43 Ur Squamous Epith Cells 5-10 /hpf (0-5) H 03/25/23 03:43 Amorphous Sediment 3+ /hpf 03/25/23 03:43 Urine Bacteria 1+ /hpf (NONE) H 03/25/23 03:43 Hyaline Casts 0-4 /lpf H 03/25/23 03:43 Salicylates < 0.3 mg/dL (3-10 ) L 03/25/23 01:10 Urine Opiates Scre en Negative ng/mL (N egative) 03/25/23 03:43 Acetaminophen < 5.0 ug/mL (10-3 0) L 03/25/23 01:10 Ur Barbiturates Sc reen Negative ng/mL (N egative) 03/25/23 03:43 Ur Phencyclidine S crn Negative ng/mL (N egative) 03/25/23 03:43 Ur Amphetamines Sc reen Positive ng/mL (N egative) H 03/25/23 03:43 U Benzodiazepines Scrn Negative ng/mL (N egative) 03/25/23 03:43 Urine Cocaine Scre en Negative ng/mL (N egative) 03/25/23 03:43 U Marijuana (THC) Screen Negative ng/mL (N egative) 03/25/23 03:43 Ethyl Alcohol < 10 mg/dL (0-10) 03/25/23 01:10 Hepatitis A IgM Ab Non-reactive (No nreactive) 03/26/23 18:00 Hep Bs Antigen Non-reactive (No nreactive) 03/26/23 18:00 Hep Bs Antibody 3.5 (11.5-1000) L 03/26/23 18:00 Hep B Core Total A b Non-reactive (No nreactive) 03/26/23 18:00 Hepatitis C Antibo dy Non-reactive (No nreactive) 03/26/23 18:00 HIV 1&2 Ab & HIV 1 Ag Non-reactive (No n-Reactiv) 03/26/23 18:08 HIV 1&2 Antibody Non-reactive (No n-Reactiv) 03/26/23 18:08 Vitals: Last Vital Signs Temp 98.4 F 03/31/23 14:00 Pulse 69 03/31/23 14:00 Resp 16 03/31/23 14:00 BP 136/87 03/31/23 14:00 Pulse Ox 97 03/31/23 14:00 O2 Del Method Room Air 03/30/23 14:00 Discharge Plan Discharge Patient Disposition: Home Condition: Stable Prescriptions: New venlafaxine 150 mg Capsule,Extended Release 24hr 150 mg PO DAILY 30 Days Qty: 30 1RF donepezil 5 mg Tablet 10 mg PO BEDTIME 30 Days Qty: 30 1RF Discharge Orders: Discharge Order (Routine); Ordered 03/31/23 Ordered By: Woody Villafana Referrals: [facility] [Outside] - 04/03/23 11:30 am (Initial appointment scheduled 04/03/23 @ 11:30 check in) Rupinder Tarango NP [Nurse Practitioner] - 04/08/23 10:00 am (Hospital follow up. ) Discharge Diet: Usual diet Discharge Activity: Resume usual activity Patient Instructions: Opioid Safety Discharge Attestations NPU Time Spent in Discharge Care*: less than 30 min Specific Discharge Activities: Specific discharge activities: educating patient and documenting/other paperwork Coding Level of Care Code Acute g FW DC note Diagnoses Acute psychosis F23 Rhabdomyolysis M62.82 Acute kidney injury N17.9 Methamphetamine use disorder, severe, dependence F15.20
[2023-03-31 16:08] VITALS: BP 136/87; PULSE 69; RESP 16; TEMP 36.9; O2SAT 97
== END 2023-03-31 16:37 | disposition home or self-care (01) | DRG 897 ==
LOC: ER 03-25 03:01 → ICU 03-25 03:47 → NP 03-27 19:59
PROVIDERS: Admitting Provider Hospitalist; Emergency Provider Emergency Medicine; Visit Provider Student in an Organized Health Care Education/Training Program
DX: F15.151 Other stimulant abuse with stimulant-induced psychotic disorder with hallucinations (principal); M62.82 Rhabdomyolysis; N17.9 Acute kidney failure, unspecified; E87.3 Alkalosis; E87.6 Hypokalemia
CPT/HCPCS: 36415; 51702; 71045; 80048; 80053; 80061; 80306; 80307; 81001; 82550; 82607; 82746; 83036; 83540; 83550; 83735; 84100; 84443; 84550; 85025; 86705; 86706; 86709; 86803; 87040; 87086; 87340; 87806; 93005; 96372; 96376; 97150; 97165; 99238; 99285; C9113; J1630; J1644; J2060; J3480; J7030; J7070

== ENCOUNTER → 2023-07-18 12:05 | Outpatient (BNVA) | payer OTHER, SELFPAY | PROVIDERS: Visit Provider Nurse Practitioner Family | DX: J06.9 Acute upper respiratory infection, unspecified (principal) | CPT/HCPCS: 87486; 87581; 87633 ==